=== PATIENT | female | born 1950 | race Caucasian/White ===

== ENCOUNTER 2022-12-28 18:37 | Inpatient (IN) | payer MEDICARE, SELFPAY ==
--- NOTE | ~2022-12-28 | US_ITS ---
EXAMINATION: US ABDOMEN COMPLETE CLINICAL INFORMATION: Upper abdominal pain, epigastric. Rule out pancreatic or biliary source. COMPARISON: None available. TECHNIQUE: Real-time imaging of the abdominal viscera. Technically limited study secondary to body habitus. FINDINGS: PANCREAS: Normal ABDOMINAL AORTA: The proximal, mid, and distal segments are normal in caliber. INFERIOR VENA CAVA: Visualized portions are normal. LIVER: The liver is normal in size. The liver contour is normal. Liver echotexture is normal. No focal hepatic lesion. There is no intrahepatic biliary duct dilatation seen. GALLBLADDER: Surgically absent. COMMON BILE DUCT: Normal in caliber measuring 0.5 cm in diameter. RIGHT KIDNEY: Mild hydronephrosis. No renal calculi or focal parenchymal lesions. The kidney measures 9.7 cm in maximum dimension. LEFT KIDNEY: Not well visualized. Mild hydronephrosis. The kidney measures 10.1 cm in maximum dimension. SPLEEN: Normal. The spleen measures 9.1 cm in maximum dimension. FREE FLUID: None. US/US abdomen complete IMPRESSION: Mild bilateral hydronephrosis. Left kidney not well visualized.
[2022-12-28 18:59] VITALS: BP 129/85; PULSE 110; RESP 16; TEMP 36.4; O2SAT 95
[2022-12-28 19:05] VITALS: BMI 30.2
--- NOTE | 2022-12-28 20:57 | PC.ADMIT ---
Addendum entered by Luke Morris RN 12/28/22 22:08: [facility] Original Note: Pt is a hospital to hospital transfer from [facility]. Pt arrived on unit with chad on 12/28/22 at 1845. She signed a CV and consents. She is 72yo and was calm and cooperative. She denies SI, HI, AH, VH. Pt ambulates independently but stated she doesn't like to walk far. Pt also reported she needs help with ADLs but seems to have adequate ROM, gross and fine motor skills. Pt says she has been depressed since her in 2018. Pt's affect was subdued. She made good eye contact. She does not remember the name of her PCP. She reported poor sleep. Pt answered admission questions and fell asleep. Pt has HTN, Herpes/Shingles on right buttock, and was started on Zyprexa 5mg for depression, at [facility]. Pt's admission date at [facility] was 12/02/22. She was treated for c-diff, hypocalcemia and hypocalcemia. Her son was notified of her admission
[2022-12-29 06:00] VITALS: BP 116/68; PULSE 93; RESP 16; TEMP 36.7; O2SAT 95
[2022-12-29 08:29] LABS: Alanine Aminotransferase 20 U/L (0-31); Albumin Level 3.2 g/dL (3.5-5.0); Alkaline Phosphatase 72 U/L (39-117); Anion Gap 11 (12-20); Aspartate Amino Transferase 19 U/L (5-31); Bilirubin Total 0.6 mg/dL (0.0-1.0); Blood Urea Nitrogen 18 mg/dL (9-16); Calcium 8.9 mg/dL (8.4-10.2); Carbon Dioxide 24 mmol/L (22-29); Chloride 108 mmol/L (96-108); Cholesterol 220 mg/dL (<200); Creatinine Clr Calc Pharmacy 58.2; Estimated Glomerular Filt Rate > 60; Glucose Fasting 97 mg/dL (60-99); HDL Cholesterol 35 mg/dL (>40); LDL Cholesterol Calculated 159 mg/dL (<100); Potassium 4.2 mmol/L (3.3-5.1); Sodium 139 mmol/L (135-145); Total Protein 5.6 g/dL (6.5-8.0); Triglycerides 130 mg/dL (<150)
--- NOTE | 2022-12-29 08:38 | HO.PSYADMNOT ---
HPI Date of Service: 12/29/22 Chief Complaint: Major Depressive D/O Recurrent Severe W/O Psyh Sources of Information: patient interviewed, chart reviewed and crisis/core team assessment reviewed HPI Subjective Notes: Zimmerman Warning and Conditional Voluntary Narrative: The patient is a 72-year-old female, , mother of 2 adult children, living alone with good social support referred from [facility] after she was found in the road to [facility], very confused with altered mental status. The police was called and she was rushed to the emergency room since she has altered mental status. Over there, she was diagnosed with a UTI, she was that he rotated and she has Clostridium difficile a that was treated with antibiotics. She was medically cleared and assessed by Psychiatry since the patient had been delusional. According to the crisis assessment, the patient had altered mental status, confusion and visual hallucinations. When she got more stable she complained of passive suicidal ideation, transferred to this facility for psychiatric stabilization. On interview the patient is a very poor historian, she stated that she is very tired and she wants to rest and she was unable to provide any details of how come she in the in the hospital or the emergency room. She gave us permission to contact her children who known more about it. According to the crisis assessment her son reported that she had been more depressed since 2018 that her . Since then she has been treated as an outpatient and she had been prescribed with Zyprexa in the past. The patient is a very poor historian we could not get any collateral information will try to gather more collateral information. The patient is able to contract for safety and she signed a conditional voluntary. Even though that she is slightly confused and disoriented, she wants treatment and she wants to get better. She feels safe in the facility. Past Psychiatric History: Unknown but apparently she has follows outpatient services the nurse practitioner Medical Evaluation Reviewed: Hospitalist Carmella Pending [facility] Narrative: UTI resolved, Family History: Denies Social History: The patient is a she reported that she has good social support provided by her children. She has grandchildren and she is a retired AIR CONDITIONING SUPERVISOR. She lives alone in her own place Substance History: Denies Trauma History: Unknown Diagnostics Vital Signs (24Hr): Vital Signs - 24 hr 12/28/22 18:59 12/29/22 06:00 Temperature 97.6 F 98.1 F Pulse Rate 110 H 93 Respiratory Rate 16 16 Blood Pressure 129/85 116/68 Pulse Oximetry 95 95 Oxygen Delivery Method Room Air Room Air BMI result Body Mass Index 30.2 Labs 12/29/22 07:52 Labs: Laboratory Results - last 48 hr 12/29/22 07:52 Sodium 139 Potassium 4.2 Chloride 108 Carbon Dioxide 24 Anion Gap 11 L BUN 18 H Creatinine 0.74 Estim Creat Clear Calc 58.2 Estimated GFR > 60 Fasting Glucose 97 Calcium 8.9 Total Bilirubin 0.6 AST 19 ALT 20 Alkaline Phosphatase 72 Total Protein 5.6 L Albumin 3.2 L Triglycerides 130 Cholesterol 220 H LDL Cholesterol, Calc 159 H HDL Cholesterol 35 L Meds/Allergies Meds Home Medications Medication Instructions Recorded Confirmed Type lorazepam 0.5 mg tablet 0.5 mg PO TID PRN Anxiety 12/28/22 12/28/22 History mirtazapine 7.5 mg tablet 7.5 mg PO BEDTIME 12/28/22 12/28/22 History olanzapine 5 mg disintegrating 5 mg PO BEDTIME 12/28/22 12/28/22 History tablet Allergies Allergies Allergy/AdvReac Type Severity Reaction Status Date / Time Unable to Assess Allergy Verified 12/28/22 18:48 Mental Status Exam Mental Status Exam Patient Appearance: Appropriate Patient Orientation: Person Level of Consciousness: Awake and Disoriented Patient Behavior: Guarded and Passive Mood Description: Calm Affect Description: Blunted Patient Cognition Impaired: Yes Ability to Follow Directions: Good Speech Pattern: Clear Hallucinations: None Delusions: Paranoid Ideation Thought Process: Illogical and Distracted Thought Content: positive for [place], positive for Poverty of Content and positive for Thought Blocking Judgement: Fair Assessment & Plan Assessment & Plan (1) Delirium: Status: Acute Code(s): R41.0 - Disorientation, unspecified (2) Mood disorder: Status: Acute Code(s): F39 - Unspecified mood [affective] disorder Plan The patient is an elderly female who was brought to the emergency room after she was found in the road disorganized with altered mental status due to UTI and clustering diffuse silly infection. She was medically treated and transferring to this facility since she reported exacerbation of depression with passive suicidal ideation. On the intake interview the patient was very confused, very tired unable to provide any details but she wants treatment. Plan 1. Gather collateral information, we will try to contact her son is and get more information about her previous treatment. 2. We will continue with Zyprexa 5 mg p.o. q.h.s. but started at [facility]. Apparently she had been prescribing this medication before. 3. We will continue medical follow-up. 4. Reassessment with results Patient educated on: diagnosis Informed Consent: further education needed Reason for continued inpatient stay Substantial Risk for: harm to self, inability to function, rapid decompensation and med/psych decompensation Statement Statement: I have reviewed the history and physical and performed a pertinent examination on my patient. No changes have occurred unless specified. If the History and Physical was not performed prior to admission, the Hospitalist's service will be consulted for completing the admission physical. Time Spent With Patient Time: Total time managing care of this patient today __45__ minutes.
[2022-12-29] MEDS: Magnesium Hydrox/Alum Hydrox 30 ML ORAL.SUSP PO (08:52)
--- NOTE | 2022-12-29 16:27 | HO.PM.IMCN ---
History of Present Illness Data of Consult Service Date: 12/29/22 Primary Care Provider: Unknown Physician HPI Reason for consult: Admission H&P Pt is a 72-year-old female with a PMH significant for?GERD and thymoma who is admitted to [facility] for increasing depression and passive wishes. Patient was originally admitted on 12/02/2022 to [facility] after being found lying on the side of the road and reported to the police that she was [place] [address] Patient was altered at the time and could provide no reason for why she was walking to the highway. Patient was initially admitted to the medical service for treatment of AMS, hypocalcemia, hypokalemia. Medical consult for admission H&P. ?Patient complains of ?GERD?: Burning, gnawing epigastric pain. States she is unable to eat secondary to the pain. Patient is alert and oriented x4, but says she has been having ?memory problems? and is unable to say what GERD medication she was on, when she last took her medication, or how long her GERD symptoms have been occurring. Patient has no other acute or chronic medical concerns at this time. Denies chest pain/pressure, palpitations. No shortness of breath. Denies fever, chills, nausea, vomiting. Patient also states her only medical conditions and GERD and a remote hx of thymoma. BMP reviewed, grossly unremarkable. Review of Systems Review of Systems: Epigastric pain Patient has no other acute medical concerns at this time [facility] Social History Household Members: None Household Members Other:: pt lives by self Housing: House Do you presently have visiting nurse or other home services: Yes Patient Tobacco Use Status: Never used Tobacco e-Cigarette/Vaping Use: Never Used Second Hand Smoke Exposure: No service: No Sexual orientation: Straight/Heterosexual Meds Allergies Allergy/AdvReac Type Severity Reaction Status Date / Time Unable to Assess Allergy Verified 12/28/22 18:48 Active Medications: Current Medications Acetaminophen (Acetaminophen 325 Mg Tablet) 650 mg PO Q6H PRN PRN Reason: Headache/Pain Mild Scale (1-3) Al Hydroxide/Mg Hydroxide (Magnesium Hydrox/Alum Hydrox 30 Ml Oral.Susp) 30 ml PO Q6H PRN PRN Reason: Heartburn/Nausea Last Admin: 12/29/22 08:52 Dose: 30 ml Hydroxyzine HCl (Hydroxyzine Hcl 25 Mg Tablet) 25 mg PO Q6H PRN PRN Reason: Anxiety Magnesium Hydroxide (Milk Of Magnesia 30 Ml Oral.Susp) 30 ml PO DAILY PRN PRN Reason: Constipation Mirtazapine (Mirtazapine 7.5 Mg Tablet) 7.5 mg PO BEDTIME ANGIE Olanzapine (Olanzapine 5 Mg Tablet) 5 mg PO BEDTIME ANGIE Trazodone HCl (Trazodone Hcl 50 Mg Tablet) 50 mg PO BEDTIME MRX1 PRN PRN Reason: Insomnia Home Medications Medication Instructions Recorded Confirmed Last Taken Type lorazepam 0.5 mg tablet 0.5 mg PO TID PRN Anxiety 12/28/22 12/28/22 12/21/22 20:20 History mirtazapine 7.5 mg tablet 7.5 mg PO BEDTIME 12/28/22 12/28/22 12/22/22 21:00 History olanzapine 5 mg disintegrating 5 mg PO BEDTIME 12/28/22 12/28/22 12/22/22 21:00 History tablet Physical Exam Vital Signs and Narrative: Vital Signs: Last Vital Signs Temp 98.1 F 12/29/22 06:00 Pulse 93 12/29/22 06:00 Resp 16 12/29/22 06:00 BP 116/68 12/29/22 06:00 Pulse Ox 95 12/29/22 06:00 O2 Del Method Room Air 12/29/22 06:00 BMI result Body Mass Index 30.2 General: AOx3, no acute distress Resp: CTA bilaterally CVS: S1, S2, RRR GI: +BS, NT, no distention Skin: No rash Neuro: Cranial nerves II-XII grossly intact bilaterally. Motor grossly intact bilaterally Extremities: No edema Psych: Pleasant, cooperative Results Labs 12/29/22 07:52 Labs: Laboratory Results - last 24 hr 12/29/22 07:52 Anion Gap 11 L Estim Creat Clear Calc 58.2 Estimated GFR > 60 Fasting Glucose 97 Calcium 8.9 Total Bilirubin 0.6 AST 19 ALT 20 Alkaline Phosphatase 72 Total Protein 5.6 L Albumin 3.2 L Triglycerides 130 Cholesterol 220 H LDL Cholesterol, Calc 159 H HDL Cholesterol 35 L Assessment and Plan (1) Medical clearance for psychiatric admission: Status: Acute Plan Pt is a 72-year-old female with a PMH significant for?GERD and thymoma who is admitted to [facility] for increasing depression and passive wishes. Patient was originally admitted on 12/02/2022 to [facility] after being found lying on the side of the road and reported to the police that she was [place] [address] Patient was altered at the time and could provide no reason for why she was walking to the highway. Patient was initially admitted to the medical service for treatment of AMS, hypocalcemia, hypokalemia. Medical consult for admission H&P. Mood disorder Plan as per Psychiatry GERD Patient complaining of burning, gnawing epigastric pain that is preventing her from eating Patient unable to remember what GERD medication she was on, uncertain how long she has been off her medications Medication review indicates patient was on famotidine 40 mg daily, last filled 05/16/2022 Continue Maalox p.r.n. Will restart famotidine at 20mg bid Encourage patient to eat Patient has no other known chronic medical history and no acute medical complaints at this time. BMP grossly unremarkable with no electrolyte. Will sign off at this time. Please re-consult if there are any acute problems or concerns. Time Spent With Patient Time: Total time managing care of this patient today ____ minutes.
[2022-12-29 18:00] VITALS: BP 135/60; PULSE 73; RESP 16; TEMP 35.9; O2SAT 95
[2022-12-29] MEDS: OLANZapine 5 MG TABLET PO (20:10)
[2022-12-29] MEDS: Mirtazapine 7.5 MG TABLET PO (20:10)
[2022-12-29] MEDS: Famotidine 20 MG TABLET PO (20:10)
[2022-12-30 07:00] VITALS: BMI 29.3
[2022-12-30 08:00] VITALS: BP 137/87; PULSE 73; RESP 18; TEMP 35.9; O2SAT 95
--- NOTE | 2022-12-30 13:43 | HO.PSYCHPN ---
Subjective Subjective Date of Service: 12/30/22 Reason For Visit: Major Depressive D/O Recurrent Severe W/O Psyh Subjective Notes: Conditional Voluntary Interim History: The nursing staff reported the patient had been on her bed depressed, she did not have breakfast for lunch yesterday. The occupational therapist did an Ravi test and she score 4.0. They could not do a [place] due to her lack of willing to get out of her bed. The director social welfare reported that she is going to get more collateral information. On interview the patient remains that she is feeling depressed and tired. We are going to increase her Remeron up to 50 mg p.o. q.h.s. to target depression Mental Status Exam Mental Status Exam Patient Appearance: Appropriate Patient Orientation: Person Level of Consciousness: Awake and Appropriate Patient Behavior: Guarded and Passive Mood Description: Withdrawn Affect Description: Constricted Patient Cognition Impaired: Yes Ability to Follow Directions: Good Speech Pattern: Clear Hallucinations: None Delusions: Not Present Thought Process: Distracted and Slowed Thinking Thought Content: positive for [place] and positive for Circumstantial Judgement: Fair Diagnostics Vital Signs (24Hr): Vital Signs - 24 hr 12/29/22 18:00 12/30/22 08:00 Temperature 96.7 F L 96.6 F L Pulse Rate 73 73 Respiratory Rate 16 18 Blood Pressure 135/60 137/87 Pulse Oximetry 95 95 Oxygen Delivery Method Room Air Room Air BMI result Body Mass Index 29.3 Labs 12/29/22 07:52 Labs: Laboratory Results - last 48 hr 12/29/22 07:52 Sodium 139 Potassium 4.2 Chloride 108 Carbon Dioxide 24 Anion Gap 11 L BUN 18 H Creatinine 0.74 Estim Creat Clear Calc 58.2 Estimated GFR > 60 Fasting Glucose 97 Calcium 8.9 Total Bilirubin 0.6 AST 19 ALT 20 Alkaline Phosphatase 72 Total Protein 5.6 L Albumin 3.2 L Triglycerides 130 Cholesterol 220 H LDL Cholesterol, Calc 159 H HDL Cholesterol 35 L Medications Medications Current Medications Acetaminophen (Acetaminophen 325 Mg Tablet) 650 mg PO Q6H PRN PRN Reason: Headache/Pain Mild Scale (1-3) Al Hydroxide/Mg Hydroxide (Magnesium Hydrox/Alum Hydrox 30 Ml Oral.Susp) 30 ml PO Q6H PRN PRN Reason: Heartburn/Nausea Last Admin: 12/29/22 08:52 Dose: 30 ml Famotidine (Famotidine 20 Mg Tablet) 20 mg PO BID ANGIE Last Admin: 12/30/22 08:39 Dose: 20 mg Hydroxyzine HCl (Hydroxyzine Hcl 25 Mg Tablet) 25 mg PO Q6H PRN PRN Reason: Anxiety Magnesium Hydroxide (Milk Of Magnesia 30 Ml Oral.Susp) 30 ml PO DAILY PRN PRN Reason: Constipation Mirtazapine (Mirtazapine 7.5 Mg Tablet) 7.5 mg PO BEDTIME [facility] Last Admin: 12/29/22 20:10 Dose: 7.5 mg Olanzapine (Olanzapine 5 Mg Tablet) 5 mg PO BEDTIME [facility] Last Admin: 12/29/22 20:10 Dose: 5 mg Trazodone HCl (Trazodone Hcl 50 Mg Tablet) 50 mg PO BEDTIME MRX1 PRN PRN Reason: Insomnia Allergies Allergies Allergy/AdvReac Type Severity Reaction Status Date / Time Unable to Assess Allergy Verified 12/28/22 18:48 Assessment & Plan Assessment & Plan (1) Medical clearance for psychiatric admission: Status: Acute Code(s): Z00.8 - Encounter for other general examination (2) Delirium: Status: Acute Code(s): R41.0 - Disorientation, unspecified (3) Mood disorder: Status: Acute Code(s): F39 - Unspecified mood [affective] disorder Plan Pt is a 72-year-old female with a PMH significant for?GERD and thymoma who is admitted to [facility] for increasing depression and passive wishes. Patient was originally admitted on 12/02/[address] [facility] after being found lying on the side of the road and reported to the police that she was [place] [address] Patient was altered at the time and could provide no reason for why she was walking to the highway. Patient was initially admitted to the medical service for treatment of AMS, hypocalcemia, hypokalemia. Medical consult for admission H&P. Mood disorder Plan as per Psychiatry GERD Patient complaining of burning, gnawing epigastric pain that is preventing her from eating Patient unable to remember what GERD medication she was on, uncertain how long she has been off her medications Medication review indicates patient was on famotidine 40 mg daily, last filled 05/16/2022 Continue Maalox p.r.n. Will restart famotidine at 20mg bid Encourage patient to eat Patient has no other known chronic medical history and no acute medical complaints at this time. BMP grossly unremarkable with no electrolyte. Will sign off at this time. Please re-consult if there are any acute problems or concerns. Plan 1. Gather collateral information. 2. Continue Zyprexa at the same dose. 3. Increased Remeron up to 50 mg p.o. q.h.s. on December 30 to target depression. Reason for continued inpatient stay Substantial Risk for: inability to function, rapid decompensation and med/psych decompensation Time Spent With Patient Time: Total time managing care of this patient today _20___ minutes.
[2022-12-30 19:30] VITALS: BP 143/85; PULSE 85; RESP 18; TEMP 36.1; O2SAT 94
[2022-12-30] MEDS: Mirtazapine 7.5 MG TABLET PO (20:58)
[2022-12-30] MEDS: OLANZapine 5 MG TABLET PO (20:59)
[2022-12-31 07:45] VITALS: BP 103/58; PULSE 89; RESP 12; TEMP 36.2; O2SAT 93
--- NOTE | 2022-12-31 14:00 | PM.PSYCN ---
History of Present Illness Chief Complaint: Major Depressive D/O Recurrent Severe W/O Psyh HPI Past Psychiatric History: Unknown but apparently she has follows outpatient services the nurse practitioner [facility] Family History: Denies Social History: The patient is a she reported that she has good social support provided by her children. She has grandchildren and she is a retired SUBSTANCE ABUSE RN. She lives alone in her own place Trauma History: Unknown Diagnostics Vital Signs (24Hr): Vital Signs - 24 hr 12/30/22 19:30 12/31/22 07:45 Temperature 96.9 F 97.1 F Pulse Rate 85 89 Respiratory Rate 18 12 Blood Pressure 143/85 H 103/58 L Pulse Oximetry 94 93 Oxygen Delivery Method Room Air BMI result Body Mass Index 29.3 Labs 12/29/22 07:52 Medications Medications Current Medications Acetaminophen (Acetaminophen 325 Mg Tablet) 650 mg PO Q6H PRN PRN Reason: Headache/Pain Mild Scale (1-3) Al Hydroxide/Mg Hydroxide (Magnesium Hydrox/Alum Hydrox 30 Ml Oral.Susp) 30 ml PO Q6H PRN PRN Reason: Heartburn/Nausea Last Admin: 12/29/22 08:52 Dose: 30 ml Famotidine (Famotidine 20 Mg Tablet) 20 mg PO BID ANGIE Last Admin: 12/31/22 08:18 Dose: 20 mg Hydroxyzine HCl (Hydroxyzine Hcl 25 Mg Tablet) 25 mg PO Q6H PRN PRN Reason: Anxiety Magnesium Hydroxide (Milk Of Magnesia 30 Ml Oral.Susp) 30 ml PO DAILY PRN PRN Reason: Constipation Mirtazapine (Mirtazapine 7.5 Mg Tablet) 7.5 mg PO BEDTIME ANGIE Last Admin: 12/30/22 20:58 Dose: 7.5 mg Olanzapine (Olanzapine 5 Mg Tablet) 5 mg PO BEDTIME ANGIE Last Admin: 12/30/22 20:59 Dose: 5 mg Trazodone HCl (Trazodone Hcl 50 Mg Tablet) 50 mg PO BEDTIME MRX1 PRN PRN Reason: Insomnia Last Admin: 12/30/22 20:58 Dose: 50 mg Allergies Allergies Allergy/AdvReac Type Severity Reaction Status Date / Time Unable to Assess Allergy Verified 12/28/22 18:48 Assessment & Plan Total time managing care of this patient today ____ minutes.
--- NOTE | 2022-12-31 15:24 | PM.IMHP ---
[facility] Social History Household Members: None Household Members Other:: pt lives by self Housing: House Do you presently have visiting nurse or other home services: Yes Patient Tobacco Use Status: Never used Tobacco Smoked in Last 30 Days: No e-Cigarette/Vaping Use: Never Used Patient Interested in Nicotine Replacement: No Patient Given Instructions on How to Stop Smoking: No Second Hand Smoke Exposure: No Use of substances other than those prescribed or required for medical reasons: No Currently Displaying Signs/Symptoms of Drug Intoxication Withdrawal: No Any prior treatment program specific to substance use: No Have you been hit, kicked, punched, or otherwise hurt by someone within the past year? If so, by whom?: No Do you feel safe in your current relationship?: No Is there a partner from a previous relationship who is making you feel unsafe now?: No Advance Directives: No Advance Directives Information Provided: No Do you have thoughts of harming others: None Do you have a plan to hurt others: No Plan Recently lost weight without trying: No Eating poorly because of decreased appetite: No Patient : No : No Poor oral hygiene: No service: No Sexual orientation: Straight/Heterosexual Meds Allergies Allergy/AdvReac Type Severity Reaction Status Date / Time Unable to Assess Allergy Verified 12/28/22 18:48 Active Medications: Current Medications Acetaminophen (Acetaminophen 325 Mg Tablet) 650 mg PO Q6H PRN PRN Reason: Headache/Pain Mild Scale (1-3) Al Hydroxide/Mg Hydroxide (Magnesium Hydrox/Alum Hydrox 30 Ml Oral.Susp) 30 ml PO Q6H PRN PRN Reason: Heartburn/Nausea Last Admin: 12/29/22 08:52 Dose: 30 ml Famotidine (Famotidine 20 Mg Tablet) 20 mg PO BID ANGIE Last Admin: 12/31/22 08:18 Dose: 20 mg Hydroxyzine HCl (Hydroxyzine Hcl 25 Mg Tablet) 25 mg PO Q6H PRN PRN Reason: Anxiety Magnesium Hydroxide (Milk Of Magnesia 30 Ml Oral.Susp) 30 ml PO DAILY PRN PRN Reason: Constipation Mirtazapine (Mirtazapine 7.5 Mg Tablet) 7.5 mg PO BEDTIME ANGIE Last Admin: 12/30/22 20:58 Dose: 7.5 mg Olanzapine (Olanzapine 5 Mg Tablet) 5 mg PO BEDTIME ANGIE Last Admin: 12/30/22 20:59 Dose: 5 mg Trazodone HCl (Trazodone Hcl 50 Mg Tablet) 50 mg PO BEDTIME MRX1 PRN PRN Reason: Insomnia Last Admin: 12/30/22 20:58 Dose: 50 mg Home Medications Medication Instructions Recorded Confirmed Last Taken Type lorazepam 0.5 mg tablet 0.5 mg PO TID PRN Anxiety 12/28/22 12/28/22 12/21/22 20:20 History mirtazapine 7.5 mg tablet 7.5 mg PO BEDTIME 12/28/22 12/28/22 12/22/22 21:00 History olanzapine 5 mg disintegrating 5 mg PO BEDTIME 12/28/22 12/28/22 12/22/22 21:00 History tablet Physical Exam Vital Signs and Narrative: Vital Signs: Last Vital Signs Temp 97.1 F 12/31/22 07:45 Pulse 89 12/31/22 07:45 Resp 12 12/31/22 07:45 BP 103/58 L 12/31/22 07:45 Pulse Ox 93 12/31/22 07:45 O2 Del Method Room Air 12/30/22 19:30 BMI result Body Mass Index 29.3 Results Labs 12/31/22 14:39 12/31/22 14:39 Labs: Laboratory Results - last 24 hr 12/31/22 14:39 MCV 96.6 MCH 30.9 MCHC 32.0 RDW 17.5 H Plt Count 276 MPV 10.6 Immature Gran % (Auto) 0.5 H Neut % (Auto) 66.4 Lymph % (Auto) 20.6 [place] % (Auto) 9.3 Eos % (Auto) 2.2 Baso % (Auto) 1.0 Lymph # (Auto) 1.3 [place] # (Auto) 0.6 Eos # (Auto) 0.1 Baso # (Auto) 0.1 Abs Immat Gran (auto) 0.03 Absolute Neuts (auto) 4.2 Absolute Nucleated RBC 0.000 Nucleated RBC % (auto) 0.0 Assessment and Plan Time Spent With Patient Time: Total time managing care of this patient today ____ minutes.
[2022-12-31 15:42] LABS: Alanine Aminotransferase 17 U/L (0-31); Albumin Level 3.4 g/dL (3.5-5.0); Alkaline Phosphatase 74 U/L (39-117); Anion Gap 17 (12-20); Aspartate Amino Transferase 19 U/L (5-31); Bilirubin Total 0.6 mg/dL (0.0-1.0); Blood Urea Nitrogen 24 mg/dL (9-16); Calcium 9.2 mg/dL (8.4-10.2); Carbon Dioxide 19 mmol/L (22-29); Chloride 107 mmol/L (96-108); Creatinine Clr Calc Pharmacy 49.3; Estimated Glomerular Filt Rate > 60; Glucose Random 83 mg/dL (60-115); Potassium 4.4 mmol/L (3.3-5.1); Sodium 139 mmol/L (135-145); Total Protein 6.1 g/dL (6.5-8.0)
[2022-12-31 18:00] VITALS: BP 107/52; PULSE 88; RESP 18; TEMP 36.7; O2SAT 93
--- NOTE | 2022-12-31 18:24 | PM.EVENT ---
Event Note Date of Service: 12/31/22 Event Note: Pt admitted to [facility] with consult placed to hospitalist service for evaluation of abdominal pain, decreased po intake, and loose stool. The patient was recently admitted to [facility] found to have CDiff with pnacolitis noted on ct abd/pelvis. Initially has leukocytosis 19.2. Completed course of PO vancomycin wtih wbc trending down to 5.4. Unfortunately patient states she never fully felt better however symptoms are improving. Diarrhea had fully resolved but did have single episode diarrhea with fecal incontinence last night. No further diarrhea. Has soft stool today. Continues with 5/10 epigastric pain and reports abdominal fullness as well as heartburn. No fevers, chills, nausea, vomiting, melena, hematochezia. No sob, chest pain. She has had decreased appetite. Has been drinking water and was able to tolerate a grilled cheese sandwich this afternoon. On exam, abdomen is soft nondistended. There is no tenderness to palpation. No rebound tenderness or guarding. Vitals are stable. At this time would recommend adding omeprazole 20 mg as well as simethicone p.r.n. for gas and bloating/epigastric discomfort. At this time, would not recommend retesting for CDiff and further imaging not indicated at this time. Reviewed labs. No leukocytosis. Renal function and electrolytes normal. Continue monitoring for any worsening symptoms but patient appears to be slowly improving, now tolerating PO. Thank you for allowing me to participate in this consult. Signing off at this time. Please do not hesitate to call for further questions. Time Spent With Patient Time: Total time managing care of this patient today ____ minutes.
--- NOTE | 2022-12-31 21:01 | HO.PSYCHPN ---
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 She denies nausea, no vomiting, afebrile. She does report feeling weak- increase in BUN does suggest some dehydration- encouraged to have fluids. Otherwise, pt reports not feeling well. No plan or intent to harm herself. No s/s of psychosis or delusions. Per nursing, pt mostly in bed. Medication Compliance: Yes Side effects from medications: No Attending Groups: No Review of Systems Review of Systems Epigastric pain Patient has no other acute medical concerns at this time Yes Unobtainable due to mental status Mental Status Exam Mental Status Exam Patient Appearance: Appropriate Patient Orientation: Person Level of Consciousness: Awake and Appropriate Patient Behavior: Guarded and Passive Mood Description: Withdrawn Affect Description: Constricted Patient Cognition Impaired: Yes Ability to Follow Directions: Good Speech Pattern: Clear Diagnostics Vital Signs (24Hr): Vital Signs - 24 hr 12/31/22 07:45 Temperature 97.1 F Pulse Rate 89 Respiratory Rate 12 Blood Pressure 103/58 L Pulse Oximetry 93 BMI result Body Mass Index 29.3 Labs 12/31/22 14:39 12/31/22 14:39 Labs: Laboratory Results - last 48 hr 12/31/22 14:39 WBC 6.3 RBC 5.01 Hgb 15.5 Hct 48.4 H MCV 96.6 MCH 30.9 MCHC 32.0 RDW 17.5 H Plt Count 276 MPV 10.6 Immature Gran % (Auto) 0.5 H Neut % (Auto) 66.4 Lymph % (Auto) 20.6 [place] % (Auto) 9.3 Eos % (Auto) 2.2 Baso % (Auto) 1.0 Lymph # (Auto) 1.3 [place] # (Auto) 0.6 Eos # (Auto) 0.1 Baso # (Auto) 0.1 Abs Immat Gran (auto) 0.03 Absolute Neuts (auto) 4.2 Absolute Nucleated RBC 0.000 Nucleated RBC % (auto) 0.0 Sodium 139 Potassium 4.4 Chloride 107 Carbon Dioxide 19 L Anion Gap 17 BUN 24 H Creatinine 0.86 Estim Creat Clear Calc 49.3 Estimated GFR > 60 Random Glucose 83 Calcium 9.2 Total Bilirubin 0.6 AST 19 ALT 17 Alkaline Phosphatase 74 Total Protein 6.1 L Albumin 3.4 L Medications Medications Current Medications Acetaminophen (Acetaminophen 325 Mg Tablet) 650 mg PO Q6H PRN PRN Reason: Headache/Pain Mild Scale (1-3) Al Hydroxide/Mg Hydroxide (Magnesium Hydrox/Alum Hydrox 30 Ml Oral.Susp) 30 ml PO Q6H PRN PRN Reason: Heartburn/Nausea Last Admin: 12/29/22 08:52 Dose: 30 ml Famotidine (Famotidine 20 Mg Tablet) 20 mg PO BID [facility] Last Admin: 12/31/22 08:18 Dose: 20 mg Hydroxyzine HCl (Hydroxyzine Hcl 25 Mg Tablet) 25 mg PO Q6H PRN PRN Reason: Anxiety Magnesium Hydroxide (Milk Of Magnesia 30 Ml Oral.Susp) 30 ml PO DAILY PRN PRN Reason: Constipation Mirtazapine (Mirtazapine 7.5 Mg Tablet) 7.5 mg PO BEDTIME [facility] Last Admin: 12/30/22 20:58 Dose: 7.5 mg Olanzapine (Olanzapine 5 Mg Tablet) 5 mg PO BEDTIME [facility] Last Admin: 12/30/22 20:59 Dose: 5 mg Omeprazole (Omeprazole 20 Mg Capsule.Dr) 20 mg PO DAILY@0630 [facility] Simethicone (Simethicone 80 Mg Tab.Chew) 80 mg PO QIDWMHS PRN PRN Reason: epigastric discomfort/bloating Trazodone HCl (Trazodone Hcl 50 Mg Tablet) 50 mg PO BEDTIME MRX1 PRN PRN Reason: Insomnia Last Admin: 12/30/22 20:58 Dose: 50 mg Allergies Allergies Allergy/AdvReac Type Severity Reaction Status Date / Time Unable to Assess Allergy Verified 12/28/22 18:48 Assessment & Plan Assessment & Plan (1) Mood disorder: Status: Acute Code(s): F39 - Unspecified mood [affective] disorder Plan Pt is a 72-year-old female with a PMH significant for?GERD and thymoma who is admitted to [facility] for increasing depression and passive wishes. Patient was originally admitted on 12/02/2022 to [facility] after being found lying on the side of the road and reported to the police that she [place] [address] Patient was altered at the time and could provide no reason for why she was walking to the highway. Patient was initially admitted to the medical service for treatment of AMS, hypocalcemia, hypokalemia. Medical consult for admission H&P. Mood disorder Plan as per Psychiatry GERD Patient complaining of burning, gnawing epigastric pain that is preventing her from eating Patient unable to remember what GERD medication she was on, uncertain how long she has been off her medications Medication review indicates patient was on famotidine 40 mg daily, last filled 05/16/2022 Continue Maalox p.r.n. Will restart famotidine at 20mg bid Encourage patient to eat Patient has no other known chronic medical history and no acute medical complaints at this time. BMP grossly unremarkable with no electrolyte. Will sign off at this time. Please re-consult if there are any acute problems or concerns. Plan 12/31 continue current tx. hospitalist consult ordered due to ongoing stomach ache, poor oral intake, less loose stools, afebrile. some dehydration, encouraged to drink fluids. Reason for continued inpatient stay Substantial Risk for: inability to function Time Spent With Patient Time: Total time managing care of this patient today ____ minutes.
[2023-01-01 07:46] VITALS: BP 116/78; PULSE 92; RESP 18; TEMP 36.4; O2SAT 96
--- NOTE | 2023-01-01 12:23 | HO.PSYCHPN ---
Subjective Subjective Date of Service: 01/01/23 Reason For Visit: Major Depressive D/O Recurrent Severe W/O Psyh Interim History: Patient reports she has low appetite because she still has some abdominal pain. No distress. No N/V. Ate breakfast but not lunch. Poor sleep. Doesn't feel medications have helped with sleep. afebrile. She does report feeling weak. Encouraged to have fluids. No SI. No plan or intent to harm herself. No s/s of psychosis or delusions. Per nursing, pt mostly in bed. Per hospitalist no need for further imaging or treatment for CDiff. Simethicone and Omeprazole recommended. Review of Systems Review of Systems Epigastric pain Patient has no other acute medical concerns at this time Yes Unobtainable due to mental status Mental Status Exam Mental Status Exam Patient Appearance: Appropriate Patient Orientation: Person Level of Consciousness: Awake and Appropriate Patient Behavior: Guarded and Passive Mood Description: Withdrawn Affect Description: Constricted Patient Cognition Impaired: Yes Ability to Follow Directions: Good Speech Pattern: Clear Diagnostics Vital Signs (24Hr): Vital Signs - 24 hr 12/31/22 18:00 01/01/23 07:46 Temperature 98.1 F 97.5 F Pulse Rate 88 92 Respiratory Rate 18 18 Blood Pressure 107/52 L 116/78 Pulse Oximetry 93 96 Oxygen Delivery Method Room Air Room Air BMI result Body Mass Index 29.3 Labs 12/31/22 14:39 12/31/22 14:39 Labs: Laboratory Results - last 48 hr 12/31/22 14:39 WBC 6.3 RBC 5.01 Hgb 15.5 Hct 48.4 H MCV 96.6 MCH 30.9 MCHC 32.0 RDW 17.5 H Plt Count 276 MPV 10.6 Immature Gran % (Auto) 0.5 H Neut % (Auto) 66.4 Lymph % (Auto) 20.6 [place] % (Auto) 9.3 Eos % (Auto) 2.2 Baso % (Auto) 1.0 Lymph # (Auto) 1.3 [place] # (Auto) 0.6 Eos # (Auto) 0.1 Baso # (Auto) 0.1 Abs Immat Gran (auto) 0.03 Absolute Neuts (auto) 4.2 Absolute Nucleated RBC 0.000 Nucleated RBC % (auto) 0.0 Sodium 139 Potassium 4.4 Chloride 107 Carbon Dioxide 19 L Anion Gap 17 BUN 24 H Creatinine 0.86 Estim Creat Clear Calc 49.3 Estimated GFR > 60 Random Glucose 83 Calcium 9.2 Total Bilirubin 0.6 AST 19 ALT 17 Alkaline Phosphatase 74 Total Protein 6.1 L Albumin 3.4 L Medications Medications Current Medications Acetaminophen (Acetaminophen 325 Mg Tablet) 650 mg PO Q6H PRN PRN Reason: Headache/Pain Mild Scale (1-3) Al Hydroxide/Mg Hydroxide (Magnesium Hydrox/Alum Hydrox 30 Ml Oral.Susp) 30 ml PO Q6H PRN PRN Reason: Heartburn/Nausea Last Admin: 12/29/22 08:52 Dose: 30 ml Famotidine (Famotidine 20 Mg Tablet) 20 mg PO BID [facility] Last Admin: 01/01/23 08:01 Dose: 20 mg Hydroxyzine HCl (Hydroxyzine Hcl 25 Mg Tablet) 25 mg PO Q6H PRN PRN Reason: Anxiety Magnesium Hydroxide (Milk Of Magnesia 30 Ml Oral.Susp) 30 ml PO DAILY PRN PRN Reason: Constipation Mirtazapine (Mirtazapine 7.5 Mg Tablet) 7.5 mg PO BEDTIME [facility] Last Admin: 12/31/22 21:10 Dose: 7.5 mg Olanzapine (Olanzapine 5 Mg Tablet) 5 mg PO BEDTIME [facility] Last Admin: 12/31/22 21:10 Dose: 5 mg Omeprazole (Omeprazole 20 Mg Capsule.Dr) 20 mg PO DAILY@0630 [facility] Last Admin: 01/01/23 06:42 Dose: 20 mg Simethicone (Simethicone 80 Mg Tab.Chew) 80 mg PO QIDWMHS PRN PRN Reason: epigastric discomfort/bloating Last Admin: 01/01/23 08:01 Dose: 80 mg Trazodone HCl (Trazodone Hcl 50 Mg Tablet) 50 mg PO BEDTIME MRX1 PRN PRN Reason: Insomnia Last Admin: 12/31/22 21:12 Dose: 50 mg Allergies Allergies Allergy/AdvReac Type Severity Reaction Status Date / Time Unable to Assess Allergy Verified 12/28/22 18:48 Assessment & Plan Assessment & Plan (1) Mood disorder: Status: Acute Code(s): F39 - Unspecified mood [affective] disorder Plan Pt is a 72-year-old female with a PMH significant for?GERD and thymoma who is admitted to [facility] for increasing depression and passive wishes. Patient was originally admitted on 12/02/2022 to [facility] after being found lying on the side of the road and reported to the police that she was [place] [address] Patient was altered at the time and could provide no reason for why she was walking to the highway. Patient was initially admitted to the medical service for treatment of AMS, hypocalcemia, hypokalemia. Medical consult for admission H&P. Mood disorder Plan as per Psychiatry GERD Patient complaining of burning, gnawing epigastric pain that is preventing her from eating Patient unable to remember what GERD medication she was on, uncertain how long she has been off her medications Medication review indicates patient was on famotidine 40 mg daily, last filled 05/16/2022 Continue Maalox p.r.n. Will restart famotidine at 20mg bid Encourage patient to eat Patient has no other known chronic medical history and no acute medical complaints at this time. BMP grossly unremarkable with no electrolyte. Will sign off at this time. Please re-consult if there are any acute problems or concerns. Plan 12/31 continue current tx. hospitalist consult ordered due to ongoing stomach ache, poor oral intake, less loose stools, afebrile. some dehydration, encouraged to drink fluids. 01/01 Continue treatment plan. Reason for continued inpatient stay Substantial Risk for: inability to function and rapid decompensation Time Spent With Patient Time: Total time managing care of this patient today ____ minutes.
[2023-01-01 18:00] VITALS: BP 114/83; PULSE 93; RESP 16; TEMP 36.1; O2SAT 99
[2023-01-02 08:09] VITALS: BP 106/53; PULSE 83; RESP 16; TEMP 36.2; O2SAT 94
[2023-01-02 18:00] VITALS: RESP 16
--- NOTE | 2023-01-02 19:05 | HO.PSYCHPN ---
Subjective Subjective Date of Service: 01/02/23 Reason For Visit: Major Depressive D/O Recurrent Severe W/O Psyh Interim History: Patient seen and discussed. She remains very depressed, isolated. She has poor PO although says she ate a good breakfast but no tlunch. She says she is depressed because of financial issues. She says she is far from home in [place] [place]. She has not talked to her family. She is not in distress. No N/V. Poor sleep. Doesn't feel medications have helped with sleep. No SI. No plan or intent to harm herself. No s/s of psychosis or delusions. Per nursing, pt mostly in bed. Review of Systems Review of Systems Epigastric pain Patient has no other acute medical concerns at this time Yes Unobtainable due to mental status Mental Status Exam Mental Status Exam Patient Appearance: Appropriate Patient Orientation: Person Level of Consciousness: Awake and Appropriate Patient Behavior: Guarded and Passive Mood Description: Withdrawn Affect Description: Constricted Patient Cognition Impaired: Yes Ability to Follow Directions: Good Speech Pattern: Clear Diagnostics Vital Signs (24Hr): Vital Signs - 24 hr 01/02/23 08:09 Temperature 97.2 F Pulse Rate 83 Respiratory Rate 16 Blood Pressure 106/53 L Pulse Oximetry 94 Oxygen Delivery Method Room Air BMI result Body Mass Index 29.3 Labs 12/31/22 14:39 12/31/22 14:39 Medications Medications Current Medications Acetaminophen (Acetaminophen 325 Mg Tablet) 650 mg PO Q6H PRN PRN Reason: Headache/Pain Mild Scale (1-3) Al Hydroxide/Mg Hydroxide (Magnesium Hydrox/Alum Hydrox 30 Ml Oral.Susp) 30 ml PO Q6H PRN PRN Reason: Heartburn/Nausea Last Admin: 12/29/22 08:52 Dose: 30 ml Escitalopram Oxalate (Escitalopram Oxalate 5 Mg Tablet) 5 mg PO DAILY [facility] Famotidine (Famotidine 20 Mg Tablet) 20 mg PO BID [facility] Last Admin: 01/02/23 08:10 Dose: 20 mg Hydroxyzine HCl (Hydroxyzine Hcl 25 Mg Tablet) 25 mg PO Q6H PRN PRN Reason: Anxiety Magnesium Hydroxide (Milk Of Magnesia 30 Ml Oral.Susp) 30 ml PO DAILY PRN PRN Reason: Constipation Mirtazapine (Mirtazapine 7.5 Mg Tablet) 7.5 mg PO BEDTIME [facility] Last Admin: 01/01/23 20:17 Dose: 7.5 mg Olanzapine (Olanzapine 5 Mg Tablet) 5 mg PO BEDTIME [facility] Last Admin: 01/01/23 20:17 Dose: 5 mg Omeprazole (Omeprazole 20 Mg Capsule.Dr) 20 mg PO DAILY@0630 [facility] Last Admin: 01/02/23 06:28 Dose: 20 mg Simethicone (Simethicone 80 Mg Tab.Chew) 80 mg PO QIDWMHS PRN PRN Reason: epigastric discomfort/bloating Last Admin: 01/01/23 08:01 Dose: 80 mg Trazodone HCl (Trazodone Hcl 50 Mg Tablet) 50 mg PO BEDTIME MRX1 PRN PRN Reason: Insomnia Last Admin: 01/01/23 20:17 Dose: 50 mg Allergies Allergies Allergy/AdvReac Type Severity Reaction Status Date / Time Unable to Assess Allergy Verified 12/28/22 18:48 Assessment & Plan Assessment & Plan (1) Mood disorder: Status: Acute Code(s): F39 - Unspecified mood [affective] disorder Plan Pt is a 72-year-old female with a PMH significant for?GERD and thymoma who is admitted to [facility] for increasing depression and passive wishes. Patient was originally admitted on 12/02/2022 to [facility] after being found lying on the side of the road and reported to the police that she was [place] [address] Patient was altered at the time and could provide no reason for why she was walking to the highway. Patient was initially admitted to the medical service for treatment of AMS, hypocalcemia, hypokalemia. Medical consult for admission H&P. Mood disorder Plan as per Psychiatry GERD Patient complaining of burning, gnawing epigastric pain that is preventing her from eating Patient unable to remember what GERD medication she was on, uncertain how long she has been off her medications Medication review indicates patient was on famotidine 40 mg daily, last filled 05/16/2022 Continue Maalox p.r.n. Will restart famotidine at 20mg bid Encourage patient to eat Patient has no other known chronic medical history and no acute medical complaints at this time. BMP grossly unremarkable with no electrolyte. Will sign off at this time. Please re-consult if there are any acute problems or concerns. Plan 12/31 continue current tx. hospitalist consult ordered due to ongoing stomach ache, poor oral intake, less loose stools, afebrile. some dehydration, encouraged to drink fluids. 01/01 Continue treatment plan. 01/02: Will start Lexapro targeting depression. Continue other medications unchanged. Reason for continued inpatient stay Substantial Risk for: inability to function and rapid decompensation Time Spent With Patient Time: Total time managing care of this patient today ____ minutes.
[2023-01-03 08:16] VITALS: BP 114/59; PULSE 75; RESP 18; TEMP 36.3; O2SAT 95
--- NOTE | 2023-01-03 15:15 | HO.PSYCHPN ---
Subjective Subjective Date of Service: 01/03/23 Reason For Visit: Major Depressive D/O Recurrent Severe W/O Psyh Interim History: Patient was seen and discussed in rounds today. Records and plans were reviewed. She is mostly in bed, not eating, not voiding because of not drinking. Bladder scan showed no urine in her bladder. She has been taking medications. No changes were made Review of Systems Review of Systems Yes Unobtainable due to mental status Mental Status Exam Mental Status Exam Patient Appearance: Appropriate Patient Orientation: Person Level of Consciousness: Awake and Appropriate Patient Behavior: Guarded and Passive Mood Description: Withdrawn Affect Description: Constricted Patient Cognition Impaired: Yes Ability to Follow Directions: Good Speech Pattern: Clear Diagnostics Vital Signs (24Hr): Vital Signs - 24 hr 01/02/23 18:00 01/03/23 08:16 Temperature 97.3 F Pulse Rate 75 Respiratory Rate 16 18 Blood Pressure 114/59 L Pulse Oximetry 95 Oxygen Delivery Method Room Air BMI result Body Mass Index 29.3 Labs 12/31/22 14:39 12/31/22 14:39 Medications Medications Current Medications Acetaminophen (Acetaminophen 325 Mg Tablet) 650 mg PO Q6H PRN PRN Reason: Headache/Pain Mild Scale (1-3) Al Hydroxide/Mg Hydroxide (Magnesium Hydrox/Alum Hydrox 30 Ml Oral.Susp) 30 ml PO Q6H PRN PRN Reason: Heartburn/Nausea Last Admin: 12/29/22 08:52 Dose: 30 ml Escitalopram Oxalate (Escitalopram Oxalate 5 Mg Tablet) 5 mg PO DAILY [facility] Last Admin: 01/03/23 08:30 Dose: 5 mg Famotidine (Famotidine 20 Mg Tablet) 20 mg PO BID [facility] Last Admin: 01/03/23 08:30 Dose: 20 mg Hydroxyzine HCl (Hydroxyzine Hcl 25 Mg Tablet) 25 mg PO Q6H PRN PRN Reason: Anxiety Magnesium Hydroxide (Milk Of Magnesia 30 Ml Oral.Susp) 30 ml PO DAILY PRN PRN Reason: Constipation Mirtazapine (Mirtazapine 7.5 Mg Tablet) 7.5 mg PO BEDTIME [facility] Last Admin: 01/02/23 20:41 Dose: 7.5 mg Olanzapine (Olanzapine 5 Mg Tablet) 5 mg PO BEDTIME [facility] Last Admin: 01/02/23 20:41 Dose: 5 mg Omeprazole (Omeprazole 20 Mg Capsule.Dr) 20 mg PO DAILY@0630 [facility] Last Admin: 01/03/23 06:25 Dose: 20 mg Simethicone (Simethicone 80 Mg Tab.Chew) 80 mg PO QIDWMHS PRN PRN Reason: epigastric discomfort/bloating Last Admin: 01/01/23 08:01 Dose: 80 mg Trazodone HCl (Trazodone Hcl 50 Mg Tablet) 50 mg PO BEDTIME MRX1 PRN PRN Reason: Insomnia Last Admin: 01/01/23 20:17 Dose: 50 mg Allergies Allergies Allergy/AdvReac Type Severity Reaction Status Date / Time Unable to Assess Allergy Verified 12/28/22 18:48 Assessment & Plan Assessment & Plan (1) Mood disorder: Status: Acute Code(s): F39 - Unspecified mood [affective] disorder Plan Pt is a 72-year-old female with a PMH significant for?GERD and thymoma who is admitted to [facility] for increasing depression and passive wishes. Patient was originally admitted on 12/02/2022 to [facility] after being found lying on the side of the road and reported to the police that she was [place] [address] Patient was altered at the time and could provide no reason for why she was walking to the highway. Patient was initially admitted to the medical service for treatment of AMS, hypocalcemia, hypokalemia. Medical consult for admission H&P. Mood disorder Plan as per Psychiatry GERD Patient complaining of burning, gnawing epigastric pain that is preventing her from eating Patient unable to remember what GERD medication she was on, uncertain how long she has been off her medications Medication review indicates patient was on famotidine 40 mg daily, last filled 05/16/2022 Continue Maalox p.r.n. Will restart famotidine at 20mg bid Encourage patient to eat Patient has no other known chronic medical history and no acute medical complaints at this time. BMP grossly unremarkable with no electrolyte. Will sign off at this time. Please re-consult if there are any acute problems or concerns. Plan 12/31 continue current tx. hospitalist consult ordered due to ongoing stomach ache, poor oral intake, less loose stools, afebrile. some dehydration, encouraged to drink fluids. 01/01 Continue treatment plan. 01/02: Will start Lexapro targeting depression. Continue other medications unchanged. 10/9: Continue current regimen and plans Reason for continued inpatient stay Substantial Risk for: med/psych decompensation Time Spent With Patient Time: Total time managing care of this patient today ____ minutes.
[2023-01-03 18:00] VITALS: BP 145/59; PULSE 72; RESP 17; TEMP 36; O2SAT 95
[2023-01-04 08:35] VITALS: BP 128/57; PULSE 91; RESP 18; TEMP 36; O2SAT 98
--- NOTE | 2023-01-04 12:20 | HO.PSYCHPN ---
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 She ate 50% of her breakfast today. Remains flat irritable at times. The social media strategist reported that we will have a family meeting today at 03:00 o'clock, the family wants her back home. The OT reported that she scored 4.0 Ravi test. On interview the patient reports still feeling tired and dysphoric, we are discussing about treatment options. Mental Status Exam Mental Status Exam Patient Appearance: Appropriate Patient Orientation: Person Level of Consciousness: Awake and Appropriate Patient Behavior: Guarded and Passive Mood Description: Withdrawn Affect Description: Constricted Patient Cognition Impaired: Yes Ability to Follow Directions: Good Speech Pattern: Appropriate Hallucinations: None Delusions: Paranoid Ideation Thought Process: Distracted and Slowed Thinking Thought Content: positive for [place] and positive for Poverty of Content Judgement: Fair Diagnostics Vital Signs (24Hr): Vital Signs - 24 hr 01/03/23 18:00 01/04/23 08:35 Temperature 96.8 F 96.8 F Pulse Rate 72 91 Respiratory Rate 17 18 Blood Pressure 145/59 H 128/57 L Pulse Oximetry 95 98 Oxygen Delivery Method Room Air BMI result Body Mass Index 29.3 Labs 12/31/22 14:39 12/31/22 14:39 Medications Medications Current Medications Acetaminophen (Acetaminophen 325 Mg Tablet) 650 mg PO Q6H PRN PRN Reason: Headache/Pain Mild Scale (1-3) Al Hydroxide/Mg Hydroxide (Magnesium Hydrox/Alum Hydrox 30 Ml Oral.Susp) 30 ml PO Q6H PRN PRN Reason: Heartburn/Nausea Last Admin: 12/29/22 08:52 Dose: 30 ml Escitalopram Oxalate (Escitalopram Oxalate 5 Mg Tablet) 5 mg PO DAILY [facility] Last Admin: 01/04/23 08:58 Dose: 5 mg Famotidine (Famotidine 20 Mg Tablet) 20 mg PO BID [facility] Last Admin: 01/04/23 08:58 Dose: 20 mg Hydroxyzine HCl (Hydroxyzine Hcl 25 Mg Tablet) 25 mg PO Q6H PRN PRN Reason: Anxiety Magnesium Hydroxide (Milk Of Magnesia 30 Ml Oral.Susp) 30 ml PO DAILY PRN PRN Reason: Constipation Mirtazapine (Mirtazapine 7.5 Mg Tablet) 7.5 mg PO BEDTIME [facility] Last Admin: 01/03/23 20:18 Dose: 7.5 mg Olanzapine (Olanzapine 5 Mg Tablet) 5 mg PO BEDTIME [facility] Last Admin: 01/03/23 20:18 Dose: 5 mg Omeprazole (Omeprazole 20 Mg Capsule.Dr) 20 mg PO DAILY@0630 [facility] Last Admin: 01/04/23 06:20 Dose: 20 mg Simethicone (Simethicone 80 Mg Tab.Chew) 80 mg PO QIDWMHS PRN PRN Reason: epigastric discomfort/bloating Last Admin: 01/01/23 08:01 Dose: 80 mg Trazodone HCl (Trazodone Hcl 50 Mg Tablet) 50 mg PO BEDTIME MRX1 PRN PRN Reason: Insomnia Last Admin: 01/03/23 20:22 Dose: 50 mg Allergies Allergies Allergy/AdvReac Type Severity Reaction Status Date / Time Unable to Assess Allergy Verified 12/28/22 18:48 Assessment & Plan Assessment & Plan (1) Mood disorder: Status: Acute Code(s): F39 - Unspecified mood [affective] disorder Plan Pt is a 72-year-old female with a PMH significant for?GERD and thymoma who is admitted to [facility] for increasing depression and passive wishes. Patient was originally admitted on 12/02/2022 to [facility] after being found lying on the side of the road and reported to the police that she [place] [address] Patient was altered at the time and could provide no reason for why she was walking to the highway. Patient was initially admitted to the medical service for treatment of AMS, hypocalcemia, hypokalemia. Medical consult for admission H&P. Mood disorder Plan as per Psychiatry GERD Patient complaining of burning, gnawing epigastric pain that is preventing her from eating Patient unable to remember what GERD medication she was on, uncertain how long she has been off her medications Medication review indicates patient was on famotidine 40 mg daily, last filled 05/16/2022 Continue Maalox p.r.n. Will restart famotidine at 20mg bid Encourage patient to eat Patient has no other known chronic medical history and no acute medical complaints at this time. BMP grossly unremarkable with no electrolyte. Will sign off at this time. Please re-consult if there are any acute problems or concerns. Plan 12/31 continue current tx. hospitalist consult ordered due to ongoing stomach ache, poor oral intake, less loose stools, afebrile. some dehydration, encouraged to drink fluids. 01/01 Continue treatment plan. 01/02: Will start Lexapro targeting depression. Continue other medications unchanged. 01/03: Continue current regimen and plans. 01/04 continue same treatment, family meeting over Zoom done Reason for continued inpatient stay Substantial Risk for: inability to function, rapid decompensation and med/psych decompensation Time Spent With Patient Time: Total time managing care of this patient today __20__ minutes.
[2023-01-04 18:00] VITALS: BP 123/58; PULSE 75; RESP 18; TEMP 36.6; O2SAT 92
[2023-01-05 08:21] VITALS: BP 113/65; PULSE 100; RESP 16; TEMP 36.8; O2SAT 93
--- NOTE | 2023-01-05 15:37 | P.PNPSI_ITS ---
Subjective Subjective Date of Service: 01/05/23 Reason For Visit: Major Depressive D/O Recurrent Severe W/O Psyh Subjective Notes: Conditional Voluntary Interim History: The nursing staff reported the patient had been depressed, withdrawn with flat affect she slept well last night and she has been isolative. She was seen that she walks independently but she spends most of the time in her bed. On interview the patient reports some gastric discomfort. We discussed risks, benefits, side-effects and alternatives and she agreed to increase Lexapro to 10 mg p.o. daily to target depression. Mental Status Exam Mental Status Exam Patient Appearance: Appropriate Patient Orientation: Person and Situation Level of Consciousness: Awake and Appropriate Patient Behavior: Guarded and Passive Mood Description: Withdrawn Affect Description: Constricted Patient Cognition Impaired: Yes Ability to Follow Directions: Good Speech Pattern: Clear Hallucinations: None Delusions: Not Present Thought Process: Linear and Evasive Thought Content: positive for [place] and positive for Poverty of Content Judgement: Poor Diagnostics Vital Signs (24Hr): Vital Signs - 24 hr 01/04/23 18:00 01/05/23 08:21 Temperature 97.8 F 98.2 F Pulse Rate 75 100 Respiratory Rate 18 16 Blood Pressure 123/58 L 113/65 Pulse Oximetry 92 93 Oxygen Delivery Method Room Air Room Air BMI result Body Mass Index 29.3 Labs 12/31/22 14:39 12/31/22 14:39 Medications Medications Current Medications Acetaminophen (Acetaminophen 325 Mg Tablet) 650 mg PO Q6H PRN PRN Reason: Headache/Pain Mild Scale (1-3) Al Hydroxide/Mg Hydroxide (Magnesium Hydrox/Alum Hydrox 30 Ml Oral.Susp) 30 ml PO Q6H PRN PRN Reason: Heartburn/Nausea Last Admin: 12/29/22 08:52 Dose: 30 ml Escitalopram Oxalate (Escitalopram Oxalate 10 Mg Tablet) 10 mg PO DAILY [facility] Famotidine (Famotidine 20 Mg Tablet) 20 mg PO BID [facility] Last Admin: 01/05/23 08:24 Dose: 20 mg Hydroxyzine HCl (Hydroxyzine Hcl 25 Mg Tablet) 25 mg PO Q6H PRN PRN Reason: Anxiety Magnesium Hydroxide (Milk Of Magnesia 30 Ml Oral.Susp) 30 ml PO DAILY PRN PRN Reason: Constipation Mirtazapine (Mirtazapine 7.5 Mg Tablet) 7.5 mg PO BEDTIME [facility] Last Admin: 01/04/23 20:39 Dose: 7.5 mg Olanzapine (Olanzapine 5 Mg Tablet) 5 mg PO BEDTIME ANG[facility] Last Admin: 01/04/23 20:40 Dose: 5 mg Omeprazole (Omeprazole 20 Mg Capsule.Dr) 20 mg PO DAILY@0630 [facility] Last Admin: 01/05/23 06:36 Dose: 20 mg Simethicone (Simethicone 80 Mg Tab.Chew) 80 mg PO QIDWMHS PRN PRN Reason: epigastric discomfort/bloating Last Admin: 01/01/23 08:01 Dose: 80 mg Trazodone HCl (Trazodone Hcl 50 Mg Tablet) 50 mg PO BEDTIME MRX1 PRN PRN Reason: Insomnia Last Admin: 01/04/23 20:39 Dose: 50 mg Allergies Allergies Allergy/AdvReac Type Severity Reaction Status Date / Time Unable to Assess Allergy Verified 12/28/22 18:48 Assessment & Plan Assessment & Plan (1) Mood disorder: Status: Acute Code(s): F39 - Unspecified mood [affective] disorder Plan Pt is a 72-year-old female with a PMH significant for?GERD and thymoma who is admitted to [facility] for increasing depression and passive wishes. Patient was originally admitted on 12/02/2022 to [facility] after being found lying on the side of the road and reported to the police that she was [place] [address] Patient was altered at the time and could provide no reason for why she was walking to the highway. Patient was initially admitted to the medical service for treatment of AMS, hypocalcemia, hypokalemia. Medical consult for admission H&P. Mood disorder Plan as per Psychiatry GERD Patient complaining of burning, gnawing epigastric pain that is preventing her from eating Patient unable to remember what GERD medication she was on, uncertain how long she has been off her medications Medication review indicates patient was on famotidine 40 mg daily, last filled 05/16/2022 Continue Maalox p.r.n. Will restart famotidine at 20mg bid Encourage patient to eat Patient has no other known chronic medical history and no acute medical complaints at this time. BMP grossly unremarkable with no electrolyte. Will sign off at this time. Please re-consult if there are any acute problems or concerns. Plan 12/31 continue current tx. hospitalist consult ordered due to ongoing stomach ache, poor oral intake, less loose stools, afebrile. some dehydration, encouraged to drink fluids. 01/01 Continue treatment plan. 01/02: Will start Lexapro targeting depression. Continue other medications unchanged. 01/03: Continue current regimen and plans. 01/04 continue same treatment, family meeting over Zoom done 01/05 increase Lexapro to 10 mg p.o. daily to target depression. Reason for continued inpatient stay Substantial Risk for: inability to function, rapid decompensation and med/psych decompensation Time Spent With Patient Time: Total time managing care of this patient today _20___ minutes.
[2023-01-05 18:00] VITALS: BP 98/62; PULSE 62; RESP 18; TEMP 36.6; O2SAT 95
[2023-01-05] MEDS: Famotidine 20 MG TABLET PO (19:56)
[2023-01-05] MEDS: Mirtazapine 7.5 MG TABLET PO (19:57)
[2023-01-05] MEDS: OLANZapine 5 MG TABLET PO (19:57)
[2023-01-05] MEDS: traZODone HCL 50 MG TABLET PO (19:58)
[2023-01-05] MEDS: Magnesium Hydrox/Alum Hydrox 30 ML ORAL.SUSP PO (19:58)
[2023-01-06] MEDS: Omeprazole 20 MG CAPSULE.DR PO (06:24)
[2023-01-06 08:00] VITALS: BP 126/58; PULSE 60; RESP 16; TEMP 36.4; O2SAT 93
[2023-01-06] MEDS: Famotidine 20 MG TABLET PO ×2 (08:33→20:20)
[2023-01-06] MEDS: Escitalopram Oxalate 10 MG TABLET PO (08:33)
--- NOTE | 2023-01-06 09:39 | P.PNPSI_ITS ---
Subjective Subjective Date of Service: 01/06/23 Reason For Visit: Major Depressive D/O Recurrent Severe W/O Psyh Subjective Notes: Conditional Voluntary Interim History: The nursing staff reported the patient had been fully compliant with treatment, she spends most of the time on her bed. The staff has noticed also that she complains of epigastric pain. Today I tried to contact GI team to reassess the use of famotidine for GERD, I informed the medical team to reassess her. Still depressed. I ordered an MRI but she refused to go today. Mental Status Exam Mental Status Exam Patient Appearance: Appropriate Patient Orientation: Person and Situation Level of Consciousness: Awake and Appropriate Patient Behavior: Guarded and Passive Mood Description: Withdrawn Affect Description: Constricted Patient Cognition Impaired: Yes Ability to Follow Directions: Good Speech Pattern: Clear Hallucinations: None Delusions: Not Present Thought Process: Distracted and Slowed Thinking Thought Content: positive for [place] and positive for Poverty of Content Judgement: Fair Diagnostics Vital Signs (24Hr): Vital Signs - 24 hr 01/05/23 18:00 01/06/23 08:00 Temperature 97.8 F 97.6 F Pulse Rate 62 60 Respiratory Rate 18 16 Blood Pressure 98/62 126/58 L Pulse Oximetry 95 16 L Oxygen Delivery Method Room Air BMI result Body Mass Index 29.3 Labs 12/31/22 14:39 12/31/22 14:39 Medications Medications Current Medications Acetaminophen (Acetaminophen 325 Mg Tablet) 650 mg PO Q6H PRN PRN Reason: Headache/Pain Mild Scale (1-3) Al Hydroxide/Mg Hydroxide (Magnesium Hydrox/Alum Hydrox 30 Ml Oral.Susp) 30 ml PO Q6H PRN PRN Reason: Heartburn/Nausea Last Admin: 01/05/23 19:58 Dose: 30 ml Escitalopram Oxalate (Escitalopram Oxalate 10 Mg Tablet) 10 mg PO DAILY [facility] Last Admin: 01/06/23 08:33 Dose: 10 mg Famotidine (Famotidine 20 Mg Tablet) 20 mg PO BID [facility] Last Admin: 01/06/23 08:33 Dose: 20 mg Hydroxyzine HCl (Hydroxyzine Hcl 25 Mg Tablet) 25 mg PO Q6H PRN PRN Reason: Anxiety Magnesium Hydroxide (Milk Of Magnesia 30 Ml Oral.Susp) 30 ml PO DAILY PRN PRN Reason: Constipation Mirtazapine (Mirtazapine 7.5 Mg Tablet) 7.5 mg PO BEDTIME [facility] Last Admin: 01/05/23 19:57 Dose: 7.5 mg Olanzapine (Olanzapine 5 Mg Tablet) 5 mg PO BEDTIME ANG[facility] Last Admin: 01/05/23 19:57 Dose: 5 mg Omeprazole (Omeprazole 20 Mg Capsule.Dr) 20 mg PO DAILY@0630 [facility] Last Admin: 01/06/23 06:24 Dose: 20 mg Simethicone (Simethicone 80 Mg Tab.Chew) 80 mg PO QIDWMHS PRN PRN Reason: epigastric discomfort/bloating Last Admin: 01/01/23 08:01 Dose: 80 mg Trazodone HCl (Trazodone Hcl 50 Mg Tablet) 50 mg PO BEDTIME MRX1 PRN PRN Reason: Insomnia Last Admin: 01/05/23 19:58 Dose: 50 mg Allergies Allergies Allergy/AdvReac Type Severity Reaction Status Date / Time Unable to Assess Allergy Verified 12/28/22 18:48 Assessment & Plan Assessment & Plan (1) Mood disorder: Status: Acute Code(s): F39 - Unspecified mood [affective] disorder Plan Pt is a 72-year-old female with a PMH significant for?GERD and thymoma who is admitted to [facility] for increasing depression and passive wishes. Patient was originally admitted on 12/02/2022 to [facility] after being found lying on the side of the road and reported to the police that she was [place] [address] Patient was altered at the time and could provide no reason for why she was walking to the highway. Patient was initially admitted to the medical service for treatment of AMS, hypocalcemia, hypokalemia. Medical consult for admission H&P. Mood disorder Plan as per Psychiatry GERD Patient complaining of burning, gnawing epigastric pain that is preventing her from eating Patient unable to remember what GERD medication she was on, uncertain how long she has been off her medications Medication review indicates patient was on famotidine 40 mg daily, last filled 05/16/2022 Continue Maalox p.r.n. Will restart famotidine at 20mg bid Encourage patient to eat Patient has no other known chronic medical history and no acute medical complaints at this time. BMP grossly unremarkable with no electrolyte. Will sign off at this time. Please re-consult if there are any acute problems or concerns. Plan 12/31 continue current tx. hospitalist consult ordered due to ongoing stomach ache, poor oral intake, less loose stools, afebrile. some dehydration, encouraged to drink fluids. 01/01 Continue treatment plan. 01/02: Will start Lexapro targeting depression. Continue other medications unchanged. 01/03: Continue current regimen and plans. 01/04 continue same treatment, family meeting over Zoom done 01/05 increase Lexapro up to 10 mg po daily. 01/06 same treatment, called hospitalist. Reason for continued inpatient stay Substantial Risk for: inability to function, rapid decompensation and med/psych decompensation Time Spent With Patient Time: Total time managing care of this patient today ___20_ minutes.
--- NOTE | 2023-01-06 14:07 | P.CNGI_ITS ---
History of Present Illness Data of Consult Service Date: 01/06/23 Requesting physician: Nick Ramires Primary Care Provider: Unknown Physician HPI [id number] YF with hx of GERD and thymoma admitted to [facility] on 12/29/22 for increasing depression and passive wishes. Patient was originally admitted on 12/02/2022 to [place] after being found lying on the side of the road and reported to the police that she was [place] [address] Patient was altered at the time and could provide no reason for why she was walking to the highway. She was initially admitted to the medical service for treatment of AMS, hypocalcemia, hypokalemia. GI consulted for evaluaton of GERD and epigastric pain. Patient complains of ?GERD?: Burning, gnawing epigastric pain. States she is unable to eat secondary to the pain. Patient is alert and oriented x4, but says she has been having ?memory problems? and is unable to say what GERD medication she was on, when she last took her medication, or how long her GERD symptoms have been occurring. Patient has no other acute or chronic medical concerns at this time. She denied chest pain/pressure, palpitations, shortness of breath, fever, chills, nausea, vomiting. Patient also states her only medical conditions and GERD and a remote hx of thymoma Pt was seen by the hospitalist service and started on Famotidine 20 mg twice daily Omeprazole 20 mg twice daily was added on 01/01/23 Review of Systems 2 Review of Systems: Yes Unobtainable due to mental status PMFSH Social History Social History Household Members: None Household Members Other:: pt lives by self Housing: House Do you presently have visiting nurse or other home services: Yes Patient Tobacco Use Status: Never used Tobacco e-Cigarette/Vaping Use: Never Used Second Hand Smoke Exposure: No service: No Sexual orientation: Straight/Heterosexual Meds Allergies Allergy/AdvReac Type Severity Reaction Status Date / Time Unable to Assess Allergy Verified 12/28/22 18:48 Active Medications: Current Medications Acetaminophen (Acetaminophen 325 Mg Tablet) 650 mg PO Q6H PRN PRN Reason: Headache/Pain Mild Scale (1-3) Al Hydroxide/Mg Hydroxide (Magnesium Hydrox/Alum Hydrox 30 Ml Oral.Susp) 30 ml PO Q6H PRN PRN Reason: Heartburn/Nausea Last Admin: 01/05/23 19:58 Dose: 30 ml Escitalopram Oxalate (Escitalopram Oxalate 10 Mg Tablet) 10 mg PO DAILY [facility] Last Admin: 01/06/23 08:33 Dose: 10 mg Famotidine (Famotidine 20 Mg Tablet) 20 mg PO BID [facility] Last Admin: 01/06/23 08:33 Dose: 20 mg Hydroxyzine HCl (Hydroxyzine Hcl 25 Mg Tablet) 25 mg PO Q6H PRN PRN Reason: Anxiety Magnesium Hydroxide (Milk Of Magnesia 30 Ml Oral.Susp) 30 ml PO DAILY PRN PRN Reason: Constipation Mirtazapine (Mirtazapine 7.5 Mg Tablet) 7.5 mg PO BEDTIME [facility] Last Admin: 01/05/23 19:57 Dose: 7.5 mg Olanzapine (Olanzapine 5 Mg Tablet) 5 mg PO BEDTIME [facility] Last Admin: 01/05/23 19:57 Dose: 5 mg Omeprazole (Omeprazole 20 Mg Capsule.Dr) 20 mg PO DAILY@0630 [facility] Last Admin: 01/06/23 06:24 Dose: 20 mg Simethicone (Simethicone 80 Mg Tab.Chew) 80 mg PO QIDWMHS PRN PRN Reason: epigastric discomfort/bloating Last Admin: 01/01/23 08:01 Dose: 80 mg Trazodone HCl (Trazodone Hcl 50 Mg Tablet) 50 mg PO BEDTIME MRX1 PRN PRN Reason: Insomnia Last Admin: 01/05/23 19:58 Dose: 50 mg Physical Exam 2 Vital Signs: Vital Signs: Last Vital Signs Temp 97.6 F 01/06/23 08:00 Pulse 60 01/06/23 08:00 Resp 16 01/06/23 08:00 BP 126/58 L 01/06/23 08:00 Pulse Ox 16 L 01/06/23 08:00 O2 Del Method Room Air 01/05/23 18:00 BMI result Body Mass Index 29.3 General: AOx3, no acute distress Resp: CTA bilaterally CVS: S1, S2, RRR GI: +BS, NT, no distention Skin: No rash Neuro: Cranial nerves II-XII grossly intact bilaterally. Motor grossly intact bilaterally Extremities: No edema Psych: Pleasant, cooperative Results Labs 01/17/23 14:08 01/17/23 14:08 Assessment and Plan (1) Upper abdominal pain: Status: Resolved Plan 72 YF with hx of GERD and thymoma admitted to [facility] on 12/29/22 for increasing depression and passive wishes. GI consulted for evaluaton of GERD and chronic epigastric pain. RECOMMENDATIONS: 1. Repeat labs and check lipase 2. Abdominal US to rule out pancreatic/biliary source of abdominal pain ADDENDUM: Stool studies were positive for C Diff toxin Abd pain likely due to C Diff colitis ABD US SHOWED: LIVER: The liver is normal in size. The liver contour is normal. Liver echotexture is normal. No focal hepatic lesion. There is no intrahepatic biliary duct dilatation seen. GALLBLADDER: Surgically absent. COMMON BILE DUCT: Normal in caliber measuring 0.5 cm in diameter. RIGHT KIDNEY: Mild hydronephrosis. No renal calculi or focal parenchymal lesions. The kidney measures 9.7 cm in maximum dimension. LEFT KIDNEY: Not well visualized. Mild hydronephrosis. The kidney measures 10.1 cm in maximum dimension. SPLEEN: Normal. The spleen measures 9.1 cm in maximum dimension. IMPRESSION: Mild bilateral hydronephrosis. Left kidney not well visualized. Time Spent With Patient Time: Total time managing care of this patient today ____ minutes. Procedures Date of Service Date of Service: 10/09/23
[2023-01-06] MEDS: Loperamide HCl 2 MG CAPSULE 4 MG PO (18:03)
[2023-01-06 19:35] VITALS: BP 104/61; PULSE 90; RESP 18; TEMP 36.7; O2SAT 93
[2023-01-06] MEDS: traZODone HCL 50 MG TABLET PO (20:20)
[2023-01-06] MEDS: OLANZapine 5 MG TABLET PO (20:20)
[2023-01-06] MEDS: Mirtazapine 7.5 MG TABLET PO (20:20)
[2023-01-07] MEDS: Omeprazole 20 MG CAPSULE.DR PO (06:20)
[2023-01-07 08:00] VITALS: BP 102/57; PULSE 71; RESP 16; TEMP 36.5; O2SAT 94
--- NOTE | 2023-01-07 09:21 | HO.PSYCHPN ---
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 She had been out for meals and she had been compliant with her medications. Yesterday we had a will trazodone the and the gastroenterology consult and so far she is doing much better. On interview the patient reports that she is feeling much better but still dysphoric. Mental Status Exam Mental Status Exam Patient Appearance: Appropriate Patient Orientation: Person and Situation Level of Consciousness: Awake Patient Behavior: Guarded Mood Description: Calm Affect Description: Constricted Patient Cognition Impaired: Yes Ability to Follow Directions: Good Speech Pattern: Clear Hallucinations: None Delusions: Not Present Thought Process: Distracted and Slowed Thinking Thought Content: positive for [place], positive for Circumstantial and positive for Poverty of Content Judgement: Fair Diagnostics Vital Signs (24Hr): Vital Signs - 24 hr 01/06/23 19:35 01/07/23 08:00 Temperature 98.0 F 97.7 F Pulse Rate 90 71 Respiratory Rate 18 16 Blood Pressure 104/61 102/57 L Pulse Oximetry 93 94 Oxygen Delivery Method Room Air Room Air BMI result Body Mass Index 29.3 Labs 01/07/23 09:08 12/31/22 14:39 Medications Medications Current Medications Acetaminophen (Acetaminophen 325 Mg Tablet) 650 mg PO Q6H PRN PRN Reason: Headache/Pain Mild Scale (1-3) Al Hydroxide/Mg Hydroxide (Magnesium Hydrox/Alum Hydrox 30 Ml Oral.Susp) 30 ml PO Q6H PRN PRN Reason: Heartburn/Nausea Last Admin: 01/05/23 19:58 Dose: 30 ml Escitalopram Oxalate (Escitalopram Oxalate 10 Mg Tablet) 10 mg PO DAILY [facility] Last Admin: 01/06/23 08:33 Dose: 10 mg Famotidine (Famotidine 20 Mg Tablet) 20 mg PO BID [facility] Last Admin: 01/06/23 20:20 Dose: 20 mg Hydroxyzine HCl (Hydroxyzine Hcl 25 Mg Tablet) 25 mg PO Q6H PRN PRN Reason: Anxiety Loperamide HCl (Loperamide Hcl 2 Mg Capsule) 4 mg PO Q6H PRN PRN Reason: Diarrhea Last Admin: 01/06/23 18:03 Dose: 4 mg Magnesium Hydroxide (Milk Of Magnesia 30 Ml Oral.Susp) 30 ml PO DAILY PRN PRN Reason: Constipation Mirtazapine (Mirtazapine 7.5 Mg Tablet) 7.5 mg PO BEDTIME [facility] Last Admin: 01/06/23 20:20 Dose: 7.5 mg Olanzapine (Olanzapine 5 Mg Tablet) 5 mg PO BEDTIME [facility] Last Admin: 01/06/23 20:20 Dose: 5 mg Omeprazole (Omeprazole 20 Mg Capsule.Dr) 20 mg PO DAILY@0630 [facility] Last Admin: 01/07/23 06:20 Dose: 20 mg Simethicone (Simethicone 80 Mg Tab.Chew) 80 mg PO QIDWMHS PRN PRN Reason: epigastric discomfort/bloating Last Admin: 01/01/23 08:01 Dose: 80 mg Trazodone HCl (Trazodone Hcl 50 Mg Tablet) 50 mg PO BEDTIME MRX1 PRN PRN Reason: Insomnia Last Admin: 01/06/23 20:20 Dose: 50 mg Allergies Allergies Allergy/AdvReac Type Severity Reaction Status Date / Time Unable to Assess Allergy Verified 12/28/22 18:48 Assessment & Plan Assessment & Plan (1) Upper abdominal pain: Status: Acute Code(s): R10.10 - Upper abdominal pain, unspecified Plan 72 YF with hx of GERD and thymoma admitted to [facility] on 12/29/22 for increasing depression and passive wishes. GI consulted for evaluaton of GERD and chronic epigastric pain. RECOMMENDATIONS: 1. Repeat labs and check lipase 2. Abdominal US to rule out pancreatic/biliary source of abdominal pain Plan 1. Continue with antidepressants. 2. Reassessment with results Reason for continued inpatient stay Substantial Risk for: inability to function, rapid decompensation and med/psych decompensation Time Spent With Patient Time: Total time managing care of this patient today __20__ minutes.
[2023-01-07 09:34] LABS: MANUAL DIFF FLAG NO
[2023-01-07 09:36] LABS: Lipase 19 U/L (8-78)
[2023-01-07 09:37] LABS: Basophils Absolute Auto 0.1 X10*3/uL (0.0-0.2); Basophils Percent Auto 0.6 % (0-2); Eosinophils Absolute Auto 0.3 X10*3/uL (0.0-0.4); Eosinophils Percent Auto 3.5 % (0-4); Hematocrit 46.9 % (37.0-47.0); Hemoglobin 15.1 g/dl (12.0-16.0); Imm Gran Abs Auto 0.03 X10*3/uL (0.00-0.03); Imm Gran Pct Auto 0.3 % (0.0-0.4); Lymphocytes Absolute Auto 1.6 X10*3/uL (1.2-4.9); Lymphocytes Percent Auto 17.4 % (20-40); Mean Corpuscular HGB Conc 32.2 g/dl (31.0-35.0); Mean Corpuscular Hemoglobin 31.1 pg (27.0-33.0); Mean Corpuscular Volume 96.5 fL (80.0-98.0); Mean Platelet Volume 11.3 fL (9.4-12.3); Monocytes Absolute Auto 0.7 X10*3/uL (0.1-1.2); Monocytes Percent Auto 7.8 % (2-11); Neutrophils Absolute Auto 6.3 x10*3/uL (2.0-8.3); Neutrophils Percent Auto 70.4 % (45-73); Platelet Count 279 X10*3/uL (160-400); Red Blood Count 4.86 X10*6/uL (4.20-5.50); Red Cell Distribution Width 17.2 % (11.0-16.0)
[2023-01-07] MEDS: Famotidine 20 MG TABLET PO ×2 (10:14→21:10)
[2023-01-07] MEDS: Escitalopram Oxalate 10 MG TABLET PO (10:14)
[2023-01-07 18:00] VITALS: BP 116/58; PULSE 89; RESP 17; TEMP 36.5; O2SAT 93
[2023-01-07] MEDS: traZODone HCL 50 MG TABLET PO (21:10)
[2023-01-07] MEDS: Mirtazapine 7.5 MG TABLET PO (21:10)
[2023-01-07] MEDS: OLANZapine 5 MG TABLET PO (21:10)
[2023-01-08] MEDS: Omeprazole 20 MG CAPSULE.DR PO (05:47)
[2023-01-08 06:00] VITALS: BP 130/63; PULSE 108; RESP 18; TEMP 37.4; O2SAT 93
[2023-01-08] MEDS: Acetaminophen 325 MG TABLET 650 MG PO (08:50)
[2023-01-08] MEDS: Escitalopram Oxalate 10 MG TABLET PO (08:51)
[2023-01-08] MEDS: Famotidine 20 MG TABLET PO ×2 (08:52→20:57)
--- NOTE | 2023-01-08 13:57 | PC.NURSE ---
Patient claimed to be incontinent of loose stools x3 during the evening. Today she had 2 episodes of explosive diarrhea, yellow, foul smelling and mucousy. Clened up with assistance of 2. Tereza Bradley [employer] TE[employer] OFFICER updated about the diarrhea, low grade t 99.3, increased pulse 108, poor intake and new delusions. Stool spec obtained for C Diff testing, BUN and Lytes ordered. Patient is flat, helpless and cooperative. Clear fluids encouraged.
[2023-01-08 14:14] LABS: Anion Gap 14 (12-20); Blood Urea Nitrogen 21 mg/dL (9-16); Carbon Dioxide 19 mmol/L (22-29); Chloride 109 mmol/L (96-108); Potassium 3.4 mmol/L (3.3-5.1); Sodium 139 mmol/L (135-145)
[2023-01-08 14:16] LABS: CDiff Gene PCR POSITIVE (Negative)
[2023-01-08 15:55] LABS: CDIFF Internal ctrl Dots and bkg OK (V); CDiff Toxin Positive (Negative)
--- NOTE | 2023-01-08 16:12 | PC.NURSE ---
Patient is positive for C Diff A+B toxin . train caller Tereza Bradley [employer]AR [employer]ERM[employer] TECHNICIAN notified of positive result. Contact precautions initiated.
--- NOTE | 2023-01-08 16:23 | HO.PSYCHPN ---
Subjective Subjective Date of Service: 01/08/23 Reason For Visit: Major Depressive D/O Recurrent Severe W/O Psyh Interim History: The nursing staff report pt not eating or drinking fluids; she has had several bouts of loose watery and yellow stool today; reports GI discomfort; she had been compliant with her medications. On interview the patient reports that she is feeling tired abd depressed; no appetite and reports discomfort from diarrhea. Medication Compliance: Yes Side effects from medications: No Attending Groups: No Review of Systems Acute medical concerns: No c- diff positive Medical Review of Systems: changed Review of Systems: abdominal discomfort, fatigue Review of Systems Review of Systems Epigastric pain with diarrhea Patient has no other acute medical concerns at this time Yes Unobtainable due to mental status Mental Status Exam Mental Status Exam Patient Appearance: Appropriate Patient Orientation: Person and Situation Level of Consciousness: Awake Patient Behavior: Guarded and Isolative Mood Description: Calm Affect Description: Constricted Patient Cognition Impaired: Yes Ability to Follow Directions: Good Speech Pattern: Clear Thought Process: Goal Oriented Thought Content: positive for Goal Oriented Diagnostics Vital Signs (24Hr): Vital Signs - 24 hr 01/07/23 18:00 01/08/23 06:00 Temperature 97.7 F 99.3 F Pulse Rate 89 108 H Respiratory Rate 17 18 Blood Pressure 116/58 L 130/63 Pulse Oximetry 93 93 Oxygen Delivery Method Room Air Room Air BMI result Body Mass Index 29.3 Labs 01/07/23 09:08 01/08/23 13:52 Labs: Laboratory Results - last 48 hr 01/07/23 01/07/23 01/08/23 09:02 09:08 11:15 WBC 9.0 RBC 4.86 Hgb 15.1 Hct 46.9 MCV 96.5 MCH 31.1 MCHC 32.2 RDW 17.2 H Plt Count 279 MPV 11.3 Immature Gran % (Auto) 0.3 Neut % (Auto) 70.4 Lymph % (Auto) 17.4 L [place] % (Auto) 7.8 Eos % (Auto) 3.5 Baso % (Auto) 0.6 Lymph # (Auto) 1.6 [place] # (Auto) 0.7 Eos # (Auto) 0.3 Baso # (Auto) 0.1 Abs Immat Gran (auto) 0.03 Absolute Neuts (auto) 6.3 Absolute Nucleated RBC 0.000 Nucleated RBC % (auto) 0.0 Sodium Potassium Chloride Carbon Dioxide Anion Gap BUN Lipase 19 C. difficile Tox B Gene POSITIVE A* C. difficile Toxin A&B Positive A* C. difficile Interpret SEE NOTE 01/08/23 13:52 WBC RBC Hgb Hct MCV MCH MCHC RDW Plt Count MPV Immature Gran % (Auto) Neut % (Auto) Lymph % (Auto) [place] % (Auto) Eos % (Auto) Baso % (Auto) Lymph # (Auto) [place] # (Auto) Eos # (Auto) Baso # (Auto) Abs Immat Gran (auto) Absolute Neuts (auto) Absolute Nucleated RBC Nucleated RBC % (auto) Sodium 139 Potassium 3.4 D Chloride 109 H Carbon Dioxide 19 L Anion Gap 14 BUN 21 H Lipase C. difficile Tox B Gene C. difficile Toxin A&B C. difficile Interpret Imaging Radiology Impressions: ITS Impressions Abdomen Ultrasound 01/07/23 08:45 IMPRESSION: Mild bilateral hydronephrosis. Left kidney not well visualized. Medications Medications Current Medications Acetaminophen (Acetaminophen 325 Mg Tablet) 650 mg PO Q6H PRN PRN Reason: Headache/Pain Mild Scale (1-3) Last Admin: 01/08/23 08:50 Dose: 650 mg Al Hydroxide/Mg Hydroxide (Magnesium Hydrox/Alum Hydrox 30 Ml Oral.Susp) 30 ml PO Q6H PRN PRN Reason: Heartburn/Nausea Last Admin: 01/05/23 19:58 Dose: 30 ml Escitalopram Oxalate (Escitalopram Oxalate 10 Mg Tablet) 10 mg PO DAILY [facility] Last Admin: 01/08/23 08:51 Dose: 10 mg Famotidine (Famotidine 20 Mg Tablet) 20 mg PO BID [facility] Last Admin: 01/08/23 08:52 Dose: 20 mg Fidaxomicin (Fidaxomicin 200 Mg Tablet) 200 mg PO Q12H [facility] Hydroxyzine HCl (Hydroxyzine Hcl 25 Mg Tablet) 25 mg PO Q6H PRN PRN Reason: Anxiety Loperamide HCl (Loperamide Hcl 2 Mg Capsule) 4 mg PO Q6H PRN PRN Reason: Diarrhea Last Admin: 01/06/23 18:03 Dose: 4 mg Magnesium Hydroxide (Milk Of Magnesia 30 Ml Oral.Susp) 30 ml PO DAILY PRN PRN Reason: Constipation Mirtazapine (Mirtazapine 7.5 Mg Tablet) 7.5 mg PO BEDTIME [facility] Last Admin: 01/07/23 21:10 Dose: 7.5 mg Olanzapine (Olanzapine 5 Mg Tablet) 5 mg PO BEDTIME [facility] Last Admin: 01/07/23 21:10 Dose: 5 mg Omeprazole (Omeprazole 20 Mg Capsule.Dr) 20 mg PO DAILY@0630 [facility] Last Admin: 01/08/23 05:47 Dose: 20 mg Simethicone (Simethicone 80 Mg Tab.Chew) 80 mg PO QIDWMHS PRN PRN Reason: epigastric discomfort/bloating Last Admin: 01/01/23 08:01 Dose: 80 mg Trazodone HCl (Trazodone Hcl 50 Mg Tablet) 50 mg PO BEDTIME MRX1 PRN PRN Reason: Insomnia Last Admin: 01/07/23 21:10 Dose: 50 mg Allergies Allergies Allergy/AdvReac Type Severity Reaction Status Date / Time Unable to Assess Allergy Verified 12/28/22 18:48 Assessment & Plan Assessment & Plan (1) Upper abdominal pain: Status: Acute Code(s): R10.10 - Upper abdominal pain, unspecified (2) Mood disorder: Status: Acute Code(s): F39 - Unspecified mood [affective] disorder (3) Delirium: Status: Acute Code(s): R41.0 - Disorientation, unspecified Plan 72 YF with hx of GERD and thymoma admitted to [facility] on 12/29/22 for increasing depression and passive wishes. GI consulted for evaluaton of GERD and chronic epigastric pain. Plan 1. Continue with antidepressants. 2. Reassessment with results 3.TW consult with pharmacy 4. start fidaxomicin 200mg q 12 x 10 days 4. infectious disease consult Reason for continued inpatient stay Substantial Risk for: harm to self, inability to function and med/psych decompensation Time Spent With Patient Time: Total time managing care of this patient today ____ minutes.
--- NOTE | 2023-01-08 16:28 | PC.NURSE ---
New orders obtained for Fidaoxomicin 200mg PO Q 12 hours along with ID Consult. Patient updated.
[2023-01-08] MEDS: Fidaxomicin 200 MG TABLET PO (16:53)
--- NOTE | 2023-01-08 16:54 | PC.NURSE ---
First dose of Fidaoxomicin given at 1653. Patient encouraged to eat and drink extra fluids. She ate 100% of supper and drank 480cc of Gingerale.
[2023-01-08 18:00] VITALS: BP 123/58; PULSE 96; RESP 18; TEMP 36.7; O2SAT 92
[2023-01-08] MEDS: Mirtazapine 7.5 MG TABLET PO (20:57)
[2023-01-08] MEDS: OLANZapine 5 MG TABLET PO (20:57)
[2023-01-08] MEDS: traZODone HCL 50 MG TABLET PO (20:57)
[2023-01-09] MEDS: Fidaxomicin 200 MG TABLET PO ×2 (05:13→16:10)
[2023-01-09] MEDS: Omeprazole 20 MG CAPSULE.DR PO (05:30)
[2023-01-09 06:00] VITALS: BP 105/55; PULSE 84; RESP 18; TEMP 36.6; O2SAT 93
[2023-01-09] MEDS: Escitalopram Oxalate 10 MG TABLET PO (08:42)
[2023-01-09] MEDS: Famotidine 20 MG TABLET PO ×2 (08:42→21:30)
--- NOTE | 2023-01-09 11:03 | HO.PSYCHPN ---
Subjective Subjective Date of Service: 01/09/23 Reason For Visit: Major Depressive D/O Recurrent Severe W/O Psyh Interim History: The nursing staff report she is still not eating or drinking fluid much; started on fidaxomicin; on contact precautions; infectious disease consult pending; she continues with bouts of loose watery and yellow stool today; reports no GI discomfort today; she had been compliant with her medications. On interview the patient reports that she is feeling tired and depressed; no appetite and reports discomfort from diarrhea.started on zofran for nausea to help with PO intake Medication Compliance: Yes Side effects from medications: No Attending Groups: No Review of Systems c-diff decreased PO intake Medical Review of Systems: unchanged Review of Systems Review of Systems Epigastric pain with diarrhea Patient has no other acute medical concerns at this time Yes Unobtainable due to mental status Mental Status Exam Mental Status Exam Patient Appearance: Appropriate Patient Orientation: Person and Situation Level of Consciousness: Awake Patient Behavior: Guarded and Isolative Mood Description: Calm Affect Description: Constricted Patient Cognition Impaired: Yes Ability to Follow Directions: Good Speech Pattern: Clear Judgement: Fair Diagnostics Vital Signs (24Hr): Vital Signs - 24 hr 01/08/23 18:00 01/09/23 06:00 Temperature 98.1 F 97.8 F Pulse Rate 96 84 Respiratory Rate 18 18 Blood Pressure 123/58 L 105/55 L Pulse Oximetry 92 93 Oxygen Delivery Method Room Air Room Air BMI result Body Mass Index 29.3 Labs 01/07/23 09:08 01/08/23 13:52 Labs: Laboratory Results - last 48 hr 01/08/23 01/08/23 11:15 13:52 Sodium 139 Potassium 3.4 D Chloride 109 H Carbon Dioxide 19 L Anion Gap 14 BUN 21 H C. difficile Tox B Gene POSITIVE A* C. difficile Toxin A&B Positive A* C. difficile Interpret SEE NOTE Imaging Radiology Impressions: ITS Impressions Abdomen Ultrasound 01/07/23 08:45 IMPRESSION: Mild bilateral hydronephrosis. Left kidney not well visualized. Medications Medications Current Medications Acetaminophen (Acetaminophen 325 Mg Tablet) 650 mg PO Q6H PRN PRN Reason: Headache/Pain Mild Scale (1-3) Last Admin: 01/08/23 08:50 Dose: 650 mg Al Hydroxide/Mg Hydroxide (Magnesium Hydrox/Alum Hydrox 30 Ml Oral.Susp) 30 ml PO Q6H PRN PRN Reason: Heartburn/Nausea Last Admin: 01/05/23 19:58 Dose: 30 ml Escitalopram Oxalate (Escitalopram Oxalate 10 Mg Tablet) 10 mg PO DAILY [facility] Last Admin: 01/09/23 08:42 Dose: 10 mg Famotidine (Famotidine 20 Mg Tablet) 20 mg PO BID [facility] Last Admin: 01/09/23 08:42 Dose: 20 mg Fidaxomicin (Fidaxomicin 200 Mg Tablet) 200 mg PO Q12H [facility] Last Admin: 01/09/23 05:13 Dose: 200 mg Hydroxyzine HCl (Hydroxyzine Hcl 25 Mg Tablet) 25 mg PO Q6H PRN PRN Reason: Anxiety Loperamide HCl (Loperamide Hcl 2 Mg Capsule) 4 mg PO Q6H PRN PRN Reason: Diarrhea Last Admin: 01/06/23 18:03 Dose: 4 mg Magnesium Hydroxide (Milk Of Magnesia 30 Ml Oral.Susp) 30 ml PO DAILY PRN PRN Reason: Constipation Mirtazapine (Mirtazapine 7.5 Mg Tablet) 7.5 mg PO BEDTIME [facility] Last Admin: 01/08/23 20:57 Dose: 7.5 mg Olanzapine (Olanzapine 5 Mg Tablet) 5 mg PO BEDTIME [facility] Last Admin: 01/08/23 20:57 Dose: 5 mg Omeprazole (Omeprazole 20 Mg Capsule.Dr) 20 mg PO DAILY@0630 [facility] Last Admin: 01/09/23 05:30 Dose: 20 mg Simethicone (Simethicone 80 Mg Tab.Chew) 80 mg PO QIDWMHS PRN PRN Reason: epigastric discomfort/bloating Last Admin: 01/01/23 08:01 Dose: 80 mg Trazodone HCl (Trazodone Hcl 50 Mg Tablet) 50 mg PO BEDTIME MRX1 PRN PRN Reason: Insomnia Last Admin: 01/08/23 20:57 Dose: 50 mg Allergies Allergies Allergy/AdvReac Type Severity Reaction Status Date / Time Unable to Assess Allergy Verified 12/28/22 18:48 Assessment & Plan Assessment & Plan (1) Upper abdominal pain: Status: Acute Code(s): R10.10 - Upper abdominal pain, unspecified (2) Mood disorder: Status: Acute Code(s): F39 - Unspecified mood [affective] disorder (3) Delirium: Status: Acute Code(s): R41.0 - Disorientation, unspecified Plan 72 YF with hx of GERD and thymoma admitted to [facility] on 12/29/22 for increasing depression and passive wishes. GI consulted for evaluaton of GERD and chronic epigastric pain. Plan 1. Continue with antidepressants. 2. Reassessment with results 3.TW consult with pharmacy 4. start fidaxomicin 200mg q 12 x 10 days 4. infectious disease consult Patient educated on: diagnosis, medication risk/benefits and medical condition Informed Consent: understands and further education needed Reason for continued inpatient stay Substantial Risk for: inability to function and med/psych decompensation Time Spent With Patient Time: Total time managing care of this patient today ____ minutes.
[2023-01-09 18:00] VITALS: BP 112/62; PULSE 77; RESP 16; TEMP 36.3; O2SAT 94
[2023-01-09] MEDS: OLANZapine 5 MG TABLET PO (21:30)
[2023-01-09] MEDS: traZODone HCL 50 MG TABLET PO (21:30)
[2023-01-09] MEDS: Mirtazapine 7.5 MG TABLET PO (21:30)
[2023-01-09] MEDS: Acetaminophen 325 MG TABLET 650 MG PO (21:30)
[2023-01-10] MEDS: Fidaxomicin 200 MG TABLET PO ×2 (04:30→20:56)
[2023-01-10] MEDS: Omeprazole 20 MG CAPSULE.DR PO (06:12)
[2023-01-10 08:00] VITALS: BP 119/56; PULSE 66; RESP 18; TEMP 36.4; O2SAT 93
[2023-01-10] MEDS: Famotidine 20 MG TABLET PO ×2 (09:16→20:55)
[2023-01-10] MEDS: Escitalopram Oxalate 10 MG TABLET PO (09:16)
--- NOTE | 2023-01-10 11:00 | P.PNPSI_ITS ---
Subjective Subjective Date of Service: 01/10/23 Reason For Visit: Major Depressive D/O Recurrent Severe W/O Psyh Subjective Notes: Conditional Voluntary Interim History: Nursing staff reported the patient was diagnosed with Clostridium difficile him over the weekend she had to be moved was in her room. She slept all night and she is on antibiotics. On interview the patient denies new symptoms I explained about her diagnosis and the need to be in isolation on the meantime. We will continue with the same treatment. Mental Status Exam Mental Status Exam Patient Appearance: Appropriate Patient Orientation: Person and Situation Level of Consciousness: Awake and Appropriate Patient Behavior: Guarded and Passive Mood Description: Withdrawn Affect Description: Constricted Patient Cognition Impaired: Yes Ability to Follow Directions: Good Speech Pattern: Clear Hallucinations: None Delusions: Not Present Thought Process: Linear Thought Content: positive for [place] and positive for Goal Oriented Judgement: Fair Diagnostics Vital Signs (24Hr): Vital Signs - 24 hr 01/09/23 18:00 01/10/23 08:00 Temperature 97.4 F 97.6 F Pulse Rate 77 66 Respiratory Rate 16 18 Blood Pressure 112/62 119/56 L Pulse Oximetry 94 93 Oxygen Delivery Method Room Air Room Air BMI result Body Mass Index 29.3 Labs 01/07/23 09:08 01/08/23 13:52 Labs: Laboratory Results - last 48 hr 01/08/23 01/08/23 11:15 13:52 Sodium 139 Potassium 3.4 D Chloride 109 H Carbon Dioxide 19 L Anion Gap 14 BUN 21 H C. difficile Tox B Gene POSITIVE A* C. difficile Toxin A&B Positive A* C. difficile Interpret SEE NOTE Imaging Radiology Impressions: ITS Impressions Abdomen Ultrasound 01/07/23 08:45 IMPRESSION: Mild bilateral hydronephrosis. Left kidney not well visualized. Medications Medications Current Medications Acetaminophen (Acetaminophen 325 Mg Tablet) 650 mg PO Q6H PRN PRN Reason: Headache/Pain Mild Scale (1-3) Last Admin: 01/09/23 21:30 Dose: 650 mg Al Hydroxide/Mg Hydroxide (Magnesium Hydrox/Alum Hydrox 30 Ml Oral.Susp) 30 ml PO Q6H PRN PRN Reason: Heartburn/Nausea Last Admin: 01/05/23 19:58 Dose: 30 ml Escitalopram Oxalate (Escitalopram Oxalate 10 Mg Tablet) 10 mg PO DAILY [facility] Last Admin: 01/10/23 09:16 Dose: 10 mg Famotidine (Famotidine 20 Mg Tablet) 20 mg PO BID [facility] Last Admin: 01/10/23 09:16 Dose: 20 mg Fidaxomicin (Fidaxomicin 200 Mg Tablet) 200 mg PO BID [facility] Hydroxyzine HCl (Hydroxyzine Hcl 25 Mg Tablet) 25 mg PO Q6H PRN PRN Reason: Anxiety Loperamide HCl (Loperamide Hcl 2 Mg Capsule) 4 mg PO Q6H PRN PRN Reason: Diarrhea Last Admin: 01/06/23 18:03 Dose: 4 mg Magnesium Hydroxide (Milk Of Magnesia 30 Ml Oral.Susp) 30 ml PO DAILY PRN PRN Reason: Constipation Mirtazapine (Mirtazapine 7.5 Mg Tablet) 7.5 mg PO BEDTIME [facility] Last Admin: 01/09/23 21:30 Dose: 7.5 mg Olanzapine (Olanzapine 5 Mg Tablet) 5 mg PO BEDTIME [facility] Last Admin: 01/09/23 21:30 Dose: 5 mg Omeprazole (Omeprazole 20 Mg Capsule.Dr) 20 mg PO DAILY@0630 [facility] Last Admin: 01/10/23 06:12 Dose: 20 mg Ondansetron HCl (Ondansetron Odt 4 Mg Tab.Rapdis) 4 mg TRANSLINGU Q8H PRN PRN Reason: Nausea Simethicone (Simethicone 80 Mg Tab.Chew) 80 mg PO QIDWMHS PRN PRN Reason: epigastric discomfort/bloating Last Admin: 01/01/23 08:01 Dose: 80 mg Trazodone HCl (Trazodone Hcl 50 Mg Tablet) 50 mg PO BEDTIME MRX1 PRN PRN Reason: Insomnia Last Admin: 01/09/23 21:30 Dose: 50 mg Allergies Allergies Allergy/AdvReac Type Severity Reaction Status Date / Time Unable to Assess Allergy Verified 12/28/22 18:48 Assessment & Plan Assessment & Plan (1) Upper abdominal pain: Status: Acute Code(s): R10.10 - Upper abdominal pain, unspecified (2) Mood disorder: Status: Acute Code(s): F39 - Unspecified mood [affective] disorder (3) Delirium: Status: Acute Code(s): R41.0 - Disorientation, unspecified Plan 72 YF with hx of GERD and thymoma admitted to [facility] on 12/29/22 for increasing depression and passive wishes. GI consulted for evaluaton of GERD and chronic epigastric pain. Plan 1. Continue with antidepressants. 2. Reassessment with results 3.TW consult with pharmacy 4. start fidaxomicin 200mg q 12 x 10 days 4. infectious disease consult Reason for continued inpatient stay Substantial Risk for: inability to function, rapid decompensation and med/psych decompensation Time Spent With Patient Time: Total time managing care of this patient today ___20_ minutes.
[2023-01-10 18:00] VITALS: BP 118/58; PULSE 73; RESP 18; TEMP 36.3; O2SAT 94
--- NOTE | 2023-01-10 18:46 | PC.NURSE ---
Pt continues ABT therapy for c.diff. Reported one loose stool. Precautions maintained. VSS, afebrile. Pt consumed 50% for lunch and supper. Refused breakfast. Fluids encouraged. Pt denies pain.
[2023-01-10] MEDS: Mirtazapine 7.5 MG TABLET PO (20:55)
[2023-01-10] MEDS: traZODone HCL 50 MG TABLET PO (20:55)
[2023-01-10] MEDS: OLANZapine 5 MG TABLET PO (20:55)
[2023-01-11] MEDS: Omeprazole 20 MG CAPSULE.DR PO (06:39)
[2023-01-11 08:23] VITALS: BP 129/69; PULSE 77; RESP 16; TEMP 35.9; O2SAT 95
[2023-01-11] MEDS: Fidaxomicin 200 MG TABLET PO ×2 (08:23→21:02)
[2023-01-11] MEDS: Famotidine 20 MG TABLET PO ×2 (08:23→21:03)
[2023-01-11] MEDS: Escitalopram Oxalate 10 MG TABLET PO (08:23)
--- NOTE | 2023-01-11 13:14 | P.PNPSI_ITS ---
Subjective Subjective Date of Service: 01/11/23 Reason For Visit: Major Depressive D/O Recurrent Severe W/O Psyh Subjective Notes: Conditional Voluntary Interim History: The nursing staff reported the patient still has diarrhea and she remains most of the time on her bed. Today she has small amount of feces in the morning. Still with a Street in the physical infection. On interview the patient reports that she is feeling tired, vital signs stable, compliant with treatment. Still on isolation. Mental Status Exam Mental Status Exam Patient Appearance: Appropriate Patient Orientation: Person and Situation Level of Consciousness: Awake and Appropriate Patient Behavior: Guarded and Passive Mood Description: Withdrawn Affect Description: Constricted Patient Cognition Impaired: Yes Ability to Follow Directions: Good Speech Pattern: Clear Hallucinations: None Delusions: Not Present Thought Process: Distracted Thought Content: positive for [place] and positive for Circumstantial Judgement: Fair Diagnostics Vital Signs (24Hr): Vital Signs - 24 hr 01/10/23 18:00 01/11/23 08:23 Temperature 97.4 F 96.7 F L Pulse Rate 73 77 Respiratory Rate 18 16 Blood Pressure 118/58 L 129/69 Pulse Oximetry 94 95 Oxygen Delivery Method Room Air Room Air BMI result Body Mass Index 29.3 Labs 01/07/23 09:08 01/08/23 13:52 Imaging Radiology Impressions: ITS Impressions Abdomen Ultrasound 01/07/23 08:45 IMPRESSION: Mild bilateral hydronephrosis. Left kidney not well visualized. Medications Medications Current Medications Acetaminophen (Acetaminophen 325 Mg Tablet) 650 mg PO Q6H PRN PRN Reason: Headache/Pain Mild Scale (1-3) Last Admin: 01/09/23 21:30 Dose: 650 mg Al Hydroxide/Mg Hydroxide (Magnesium Hydrox/Alum Hydrox 30 Ml Oral.Susp) 30 ml PO Q6H PRN PRN Reason: Heartburn/Nausea Last Admin: 01/05/23 19:58 Dose: 30 ml Escitalopram Oxalate (Escitalopram Oxalate 10 Mg Tablet) 10 mg PO DAILY [facility] Last Admin: 01/11/23 08:23 Dose: 10 mg Famotidine (Famotidine 20 Mg Tablet) 20 mg PO BID [facility] Last Admin: 01/11/23 08:23 Dose: 20 mg Fidaxomicin (Fidaxomicin 200 Mg Tablet) 200 mg PO BID [facility] Last Admin: 01/11/23 08:23 Dose: 200 mg Hydroxyzine HCl (Hydroxyzine Hcl 25 Mg Tablet) 25 mg PO Q6H PRN PRN Reason: Anxiety Loperamide HCl (Loperamide Hcl 2 Mg Capsule) 4 mg PO Q6H PRN PRN Reason: Diarrhea Last Admin: 01/06/23 18:03 Dose: 4 mg Magnesium Hydroxide (Milk Of Magnesia 30 Ml Oral.Susp) 30 ml PO DAILY PRN PRN Reason: Constipation Mirtazapine (Mirtazapine 7.5 Mg Tablet) 7.5 mg PO BEDTIME [facility] Last Admin: 01/10/23 20:55 Dose: 7.5 mg Olanzapine (Olanzapine 5 Mg Tablet) 5 mg PO BEDTIME [facility] Last Admin: 01/10/23 20:55 Dose: 5 mg Omeprazole (Omeprazole 20 Mg Capsule.Dr) 20 mg PO DAILY@0630 [facility] Last Admin: 01/11/23 06:39 Dose: 20 mg Ondansetron HCl (Ondansetron Odt 4 Mg Tab.Rapdis) 4 mg TRANSLINGU Q8H PRN PRN Reason: Nausea Simethicone (Simethicone 80 Mg Tab.Chew) 80 mg PO QIDWMHS PRN PRN Reason: epigastric discomfort/bloating Last Admin: 01/01/23 08:01 Dose: 80 mg Trazodone HCl (Trazodone Hcl 50 Mg Tablet) 50 mg PO BEDTIME MRX1 PRN PRN Reason: Insomnia Last Admin: 01/10/23 20:55 Dose: 50 mg Allergies Allergies Allergy/AdvReac Type Severity Reaction Status Date / Time Unable to Assess Allergy Verified 12/28/22 18:48 Assessment & Plan Assessment & Plan (1) Upper abdominal pain: Status: Acute Code(s): R10.10 - Upper abdominal pain, unspecified (2) Mood disorder: Status: Acute Code(s): F39 - Unspecified mood [affective] disorder (3) Delirium: Status: Acute Code(s): R41.0 - Disorientation, unspecified Plan 72 YF with hx of GERD and thymoma admitted to [facility] on 12/29/22 for increasing depression and passive wishes. GI consulted for evaluaton of GERD and chronic epigastric pain. Plan 1. Continue with antidepressants. 2. Reassessment with results 3.TW consult with pharmacy 4. start fidaxomicin 200mg q 12 x 10 days 4. infectious disease consult Reason for continued inpatient stay Substantial Risk for: inability to function, rapid decompensation and med/psych decompensation Time Spent With Patient Time: Total time managing care of this patient today __20__ minutes.
[2023-01-11 18:00] VITALS: BP 102/63; PULSE 72; RESP 16; TEMP 35.8; O2SAT 97
[2023-01-11] MEDS: Mirtazapine 7.5 MG TABLET PO (21:02)
[2023-01-11] MEDS: OLANZapine 5 MG TABLET PO (21:02)
[2023-01-11] MEDS: traZODone HCL 50 MG TABLET PO (21:02)
[2023-01-12] MEDS: Omeprazole 20 MG CAPSULE.DR PO (06:23)
--- NOTE | 2023-01-12 07:39 | HO.PSYCHPN ---
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 Fully compliant with treatment and antibiotics. Still on isolation due to Clostridium diff easily infection. On interview the patient reports mild improvement since yesterday. Mental Status Exam Mental Status Exam Patient Appearance: Appropriate Patient Orientation: Person and Situation Level of Consciousness: Awake and Appropriate Patient Behavior: Guarded and Passive Mood Description: Withdrawn Affect Description: Constricted Ability to Follow Directions: Good Speech Pattern: Clear Hallucinations: None Delusions: Not Present Thought Process: Distracted and Slowed Thinking Thought Content: positive for [place], positive for Circumstantial and positive for Poverty of Content Judgement: Fair Diagnostics Vital Signs (24Hr): Vital Signs - 24 hr 01/11/23 08:23 01/11/23 18:00 Temperature 96.7 F L 96.4 F L Pulse Rate 77 72 Respiratory Rate 16 16 Blood Pressure 129/69 102/63 Pulse Oximetry 95 97 Oxygen Delivery Method Room Air Room Air BMI result Body Mass Index 29.3 Labs 01/07/23 09:08 01/08/23 13:52 Imaging Radiology Impressions: ITS Impressions Abdomen Ultrasound 01/07/23 08:45 IMPRESSION: Mild bilateral hydronephrosis. Left kidney not well visualized. Medications Medications Current Medications Acetaminophen (Acetaminophen 325 Mg Tablet) 650 mg PO Q6H PRN PRN Reason: Headache/Pain Mild Scale (1-3) Last Admin: 01/09/23 21:30 Dose: 650 mg Al Hydroxide/Mg Hydroxide (Magnesium Hydrox/Alum Hydrox 30 Ml Oral.Susp) 30 ml PO Q6H PRN PRN Reason: Heartburn/Nausea Last Admin: 01/05/23 19:58 Dose: 30 ml Escitalopram Oxalate (Escitalopram Oxalate 10 Mg Tablet) 10 mg PO DAILY [facility] Last Admin: 01/11/23 08:23 Dose: 10 mg Famotidine (Famotidine 20 Mg Tablet) 20 mg PO BID [facility] Last Admin: 01/11/23 21:03 Dose: 20 mg Fidaxomicin (Fidaxomicin 200 Mg Tablet) 200 mg PO BID [facility] Last Admin: 01/11/23 21:02 Dose: 200 mg Hydroxyzine HCl (Hydroxyzine Hcl 25 Mg Tablet) 25 mg PO Q6H PRN PRN Reason: Anxiety Loperamide HCl (Loperamide Hcl 2 Mg Capsule) 4 mg PO Q6H PRN PRN Reason: Diarrhea Last Admin: 01/06/23 18:03 Dose: 4 mg Magnesium Hydroxide (Milk Of Magnesia 30 Ml Oral.Susp) 30 ml PO DAILY PRN PRN Reason: Constipation Mirtazapine (Mirtazapine 7.5 Mg Tablet) 7.5 mg PO BEDTIME [facility] Last Admin: 01/11/23 21:02 Dose: 7.5 mg Olanzapine (Olanzapine 5 Mg Tablet) 5 mg PO BEDTIME [facility] Last Admin: 01/11/23 21:02 Dose: 5 mg Omeprazole (Omeprazole 20 Mg Capsule.Dr) 20 mg PO DAILY@0630 [facility] Last Admin: 01/12/23 06:23 Dose: 20 mg Ondansetron HCl (Ondansetron Odt 4 Mg Tab.Rapdis) 4 mg TRANSLINGU Q8H PRN PRN Reason: Nausea Simethicone (Simethicone 80 Mg Tab.Chew) 80 mg PO QIDWMHS PRN PRN Reason: epigastric discomfort/bloating Last Admin: 01/01/23 08:01 Dose: 80 mg Trazodone HCl (Trazodone Hcl 50 Mg Tablet) 50 mg PO BEDTIME MRX1 PRN PRN Reason: Insomnia Last Admin: 01/11/23 21:02 Dose: 50 mg Allergies Allergies Allergy/AdvReac Type Severity Reaction Status Date / Time Unable to Assess Allergy Verified 12/28/22 18:48 Assessment & Plan Assessment & Plan (1) Upper abdominal pain: Status: Acute Code(s): R10.10 - Upper abdominal pain, unspecified (2) Mood disorder: Status: Acute Code(s): F39 - Unspecified mood [affective] disorder (3) Delirium: Status: Acute Code(s): R41.0 - Disorientation, unspecified Plan 72 YF with hx of GERD and thymoma admitted to [facility] on 12/29/22 for increasing depression and passive wishes. GI consulted for evaluaton of GERD and chronic epigastric pain. Plan 1. Continue with antidepressants. 2. Reassessment with results 3.TW consult with pharmacy 4. start fidaxomicin 200mg q 12 x 10 days 4. infectious disease consult Reason for continued inpatient stay Substantial Risk for: inability to function, rapid decompensation and med/psych decompensation Time Spent With Patient Time: Total time managing care of this patient today __20__ minutes.
[2023-01-12 08:30] VITALS: BP 114/58; PULSE 84; RESP 16; TEMP 36.9; O2SAT 94
[2023-01-12] MEDS: Famotidine 20 MG TABLET PO ×2 (08:46→20:33)
[2023-01-12] MEDS: Fidaxomicin 200 MG TABLET PO ×2 (08:46→20:33)
[2023-01-12] MEDS: Escitalopram Oxalate 10 MG TABLET PO (08:46)
[2023-01-12 18:00] VITALS: BP 121/63; PULSE 77; RESP 18; TEMP 36.6; O2SAT 96
[2023-01-12] MEDS: OLANZapine 5 MG TABLET PO (20:33)
[2023-01-12] MEDS: Mirtazapine 7.5 MG TABLET PO (20:33)
[2023-01-13] MEDS: Omeprazole 20 MG CAPSULE.DR PO (06:41)
[2023-01-13 09:15] VITALS: BP 112/60; PULSE 73; RESP 16; TEMP 36.1; O2SAT 95
[2023-01-13 09:45] VITALS: BMI 28.1
[2023-01-13] MEDS: Escitalopram Oxalate 10 MG TABLET PO (09:46)
[2023-01-13] MEDS: Fidaxomicin 200 MG TABLET PO ×2 (09:46→20:41)
[2023-01-13] MEDS: Famotidine 20 MG TABLET PO ×2 (09:46→20:42)
--- NOTE | 2023-01-13 11:44 | HO.PSYCHPN ---
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 she still has loose stools. She feels anxious 5/10 and depressed for over 10 due to her medical problems. She slept well last night. On interview I explained her that she is going to get better with antibiotics but we need to wait a little more and she has a full resolution of her symptoms. The patient was able to understand the treatment plan. Mental Status Exam Mental Status Exam Patient Appearance: Appropriate Patient Orientation: Person and Situation Level of Consciousness: Awake and Appropriate Patient Behavior: Guarded and Passive Mood Description: Withdrawn Affect Description: Constricted Patient Cognition Impaired: Yes Ability to Follow Directions: Good Speech Pattern: Clear Hallucinations: None Delusions: Not Present Thought Process: Distracted and Slowed Thinking Thought Content: positive for [place] and positive for Poverty of Content Judgement: Fair Diagnostics Vital Signs (24Hr): Vital Signs - 24 hr 01/12/23 18:00 01/13/23 09:15 Temperature 97.8 F 96.9 F Pulse Rate 77 73 Respiratory Rate 18 16 Blood Pressure 121/63 112/60 Pulse Oximetry 96 95 Oxygen Delivery Method Room Air Room Air BMI result Body Mass Index 28.1 Labs 01/07/23 09:08 01/08/23 13:52 Imaging Radiology Impressions: ITS Impressions Abdomen Ultrasound 01/07/23 08:45 IMPRESSION: Mild bilateral hydronephrosis. Left kidney not well visualized. Medications Medications Current Medications Acetaminophen (Acetaminophen 325 Mg Tablet) 650 mg PO Q6H PRN PRN Reason: Headache/Pain Mild Scale (1-3) Last Admin: 01/09/23 21:30 Dose: 650 mg Al Hydroxide/Mg Hydroxide (Magnesium Hydrox/Alum Hydrox 30 Ml Oral.Susp) 30 ml PO Q6H PRN PRN Reason: Heartburn/Nausea Last Admin: 01/05/23 19:58 Dose: 30 ml Escitalopram Oxalate (Escitalopram Oxalate 10 Mg Tablet) 10 mg PO DAILY [facility] Last Admin: 01/13/23 09:46 Dose: 10 mg Famotidine (Famotidine 20 Mg Tablet) 20 mg PO BID [facility] Last Admin: 01/13/23 09:46 Dose: 20 mg Fidaxomicin (Fidaxomicin 200 Mg Tablet) 200 mg PO BID [facility] Last Admin: 01/13/23 09:46 Dose: 200 mg Hydroxyzine HCl (Hydroxyzine Hcl 25 Mg Tablet) 25 mg PO Q6H PRN PRN Reason: Anxiety Loperamide HCl (Loperamide Hcl 2 Mg Capsule) 4 mg PO Q6H PRN PRN Reason: Diarrhea Last Admin: 01/06/23 18:03 Dose: 4 mg Magnesium Hydroxide (Milk Of Magnesia 30 Ml Oral.Susp) 30 ml PO DAILY PRN PRN Reason: Constipation Mirtazapine (Mirtazapine 7.5 Mg Tablet) 7.5 mg PO BEDTIME [facility] Last Admin: 01/12/23 20:33 Dose: 7.5 mg Olanzapine (Olanzapine 5 Mg Tablet) 5 mg PO BEDTIME [facility] Last Admin: 01/12/23 20:33 Dose: 5 mg Omeprazole (Omeprazole 20 Mg Capsule.Dr) 20 mg PO DAILY@0630 [facility] Last Admin: 01/13/23 06:41 Dose: 20 mg Ondansetron HCl (Ondansetron Odt 4 Mg Tab.Rapdis) 4 mg TRANSLINGU Q8H PRN PRN Reason: Nausea Simethicone (Simethicone 80 Mg Tab.Chew) 80 mg PO QIDWMHS PRN PRN Reason: epigastric discomfort/bloating Last Admin: 01/01/23 08:01 Dose: 80 mg Trazodone HCl (Trazodone Hcl 50 Mg Tablet) 50 mg PO BEDTIME MRX1 PRN PRN Reason: Insomnia Last Admin: 01/11/23 21:02 Dose: 50 mg Allergies Allergies Allergy/AdvReac Type Severity Reaction Status Date / Time Unable to Assess Allergy Verified 12/28/22 18:48 Assessment & Plan Assessment & Plan (1) Upper abdominal pain: Status: Acute Code(s): R10.10 - Upper abdominal pain, unspecified (2) Mood disorder: Status: Acute Code(s): F39 - Unspecified mood [affective] disorder (3) Delirium: Status: Acute Code(s): R41.0 - Disorientation, unspecified Plan 72 YF with hx of GERD and thymoma admitted to [facility] on 12/29/22 for increasing depression and passive wishes. GI consulted for evaluaton of GERD and chronic epigastric pain. Plan 1. Continue with antidepressants. 2. Reassessment with results 3.TW consult with pharmacy 4. start fidaxomicin 200mg q 12 x 10 days 4. infectious disease consult on treatment for Clostridium diff Reason for continued inpatient stay Substantial Risk for: inability to function, rapid decompensation and med/psych decompensation Time Spent With Patient Time: Total time managing care of this patient today __20__ minutes.
[2023-01-13 18:00] VITALS: BP 140/63; PULSE 60; RESP 18; TEMP 36.1; O2SAT 95
[2023-01-13] MEDS: traZODone HCL 50 MG TABLET PO (20:40)
[2023-01-13] MEDS: OLANZapine 5 MG TABLET PO (20:41)
[2023-01-13] MEDS: Mirtazapine 7.5 MG TABLET PO (20:41)
[2023-01-14 03:50] VITALS: BP 137/63; PULSE 72; RESP 16; TEMP 36.6; O2SAT 96
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
[2023-01-14] MEDS: Omeprazole 20 MG CAPSULE.DR PO (06:22)
[2023-01-14 08:41] VITALS: BP 134/82; PULSE 67; RESP 14; TEMP 36.6; O2SAT 96
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
[2023-01-14] MEDS: Famotidine 20 MG TABLET PO ×2 (09:39→20:34)
[2023-01-14] MEDS: Escitalopram Oxalate 10 MG TABLET PO (09:39)
[2023-01-14] MEDS: Fidaxomicin 200 MG TABLET PO ×2 (09:39→20:34)
[2023-01-14 18:00] VITALS: BP 132/66; PULSE 61; TEMP 36.4; O2SAT 96
[2023-01-14] MEDS: traZODone HCL 50 MG TABLET PO (20:34)
[2023-01-14] MEDS: Mirtazapine 7.5 MG TABLET PO (20:34)
[2023-01-14] MEDS: OLANZapine 5 MG TABLET PO (20:34)
[2023-01-15] MEDS: Omeprazole 20 MG CAPSULE.DR PO (06:24)
[2023-01-15] MEDS: Fidaxomicin 200 MG TABLET PO ×2 (08:19→20:38)
[2023-01-15] MEDS: Escitalopram Oxalate 10 MG TABLET PO (08:19)
[2023-01-15] MEDS: Famotidine 20 MG TABLET PO ×2 (08:19→20:38)
[2023-01-15 08:39] VITALS: BP 115/56; PULSE 69; RESP 16; TEMP 36.5; O2SAT 94
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
[2023-01-15 18:00] VITALS: BP 135/90; PULSE 60; RESP 17; TEMP 36.3; O2SAT 94
[2023-01-15] MEDS: OLANZapine 5 MG TABLET PO (20:38)
[2023-01-15] MEDS: traZODone HCL 50 MG TABLET PO (20:38)
[2023-01-15] MEDS: Mirtazapine 7.5 MG TABLET PO (20:38)
[2023-01-16] MEDS: Omeprazole 20 MG CAPSULE.DR PO (06:31)
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
[2023-01-16 08:35] VITALS: BP 117/67; PULSE 68; RESP 16; TEMP 36.4; O2SAT 94
[2023-01-16] MEDS: Famotidine 20 MG TABLET PO ×2 (08:41→20:21)
[2023-01-16] MEDS: Escitalopram Oxalate 10 MG TABLET PO (08:41)
[2023-01-16] MEDS: Fidaxomicin 200 MG TABLET PO ×2 (08:41→20:21)
[2023-01-16 18:00] VITALS: BP 104/60; PULSE 63; RESP 16; TEMP 36.3; O2SAT 93
[2023-01-16] MEDS: traZODone HCL 50 MG TABLET PO (20:22)
[2023-01-16] MEDS: OLANZapine 5 MG TABLET PO (20:22)
[2023-01-16] MEDS: Mirtazapine 7.5 MG TABLET PO (20:22)
[2023-01-17] MEDS: Omeprazole 20 MG CAPSULE.DR PO (06:20)
[2023-01-17] MEDS: Fidaxomicin 200 MG TABLET PO (08:18)
[2023-01-17] MEDS: Famotidine 20 MG TABLET PO ×2 (08:18→21:31)
[2023-01-17] MEDS: Escitalopram Oxalate 10 MG TABLET PO (08:18)
[2023-01-17 08:35] VITALS: BP 114/59; PULSE 71; RESP 18; TEMP 36.2; O2SAT 94
--- NOTE | 2023-01-17 10:02 | HO.PSYCHPN ---
Subjective Subjective Date of Service: 01/17/23 Reason For Visit: Major Depressive D/O Recurrent Severe W/O Psyh Subjective Notes: Conditional Voluntary Interim History: The nursing staff reported the patient is alert oriented x4 pleasant, she denies suicidal or homicidal ideation and she reports that her depression 5/10. The staff reported that she still having loose stools. On interview the patient denies new symptoms still with diarrhea. We will call the hospitalist to discussed the treatment options since she is on antibiotics. Mental Status Exam Mental Status Exam Patient Appearance: Appropriate Patient Orientation: Person and Situation Level of Consciousness: Awake and Appropriate Patient Behavior: Guarded and Passive Mood Description: Withdrawn Affect Description: Constricted Patient Cognition Impaired: Yes Ability to Follow Directions: Good Speech Pattern: Clear Hallucinations: None Delusions: Not Present Thought Process: Linear Thought Content: positive for [place] and positive for Circumstantial Judgement: Fair Diagnostics Vital Signs (24Hr): Vital Signs - 24 hr 01/16/23 18:00 01/17/23 08:35 Temperature 97.3 F 97.1 F Pulse Rate 63 71 Respiratory Rate 16 18 Blood Pressure 104/60 114/59 L Pulse Oximetry 93 94 Oxygen Delivery Method Room Air Room Air BMI result Body Mass Index 28.1 Labs 01/07/23 09:08 01/08/23 13:52 Imaging Radiology Impressions: ITS Impressions Abdomen Ultrasound 01/07/23 08:45 IMPRESSION: Mild bilateral hydronephrosis. Left kidney not well visualized. Medications Medications Current Medications Acetaminophen (Acetaminophen 325 Mg Tablet) 650 mg PO Q6H PRN PRN Reason: Headache/Pain Mild Scale (1-3) Last Admin: 01/09/23 21:30 Dose: 650 mg Al Hydroxide/Mg Hydroxide (Magnesium Hydrox/Alum Hydrox 30 Ml Oral.Susp) 30 ml PO Q6H PRN PRN Reason: Heartburn/Nausea Last Admin: 01/05/23 19:58 Dose: 30 ml Escitalopram Oxalate (Escitalopram Oxalate 10 Mg Tablet) 10 mg PO DAILY [facility] Last Admin: 01/17/23 08:18 Dose: 10 mg Famotidine (Famotidine 20 Mg Tablet) 20 mg PO BID [facility] Last Admin: 01/17/23 08:18 Dose: 20 mg Fidaxomicin (Fidaxomicin 200 Mg Tablet) 200 mg PO BID [facility] Last Admin: 01/17/23 08:18 Dose: 200 mg Hydroxyzine HCl (Hydroxyzine Hcl 25 Mg Tablet) 25 mg PO Q6H PRN PRN Reason: Anxiety Loperamide HCl (Loperamide Hcl 2 Mg Capsule) 4 mg PO Q6H PRN PRN Reason: Diarrhea Last Admin: 01/06/23 18:03 Dose: 4 mg Magnesium Hydroxide (Milk Of Magnesia 30 Ml Oral.Susp) 30 ml PO DAILY PRN PRN Reason: Constipation Mirtazapine (Mirtazapine 7.5 Mg Tablet) 7.5 mg PO BEDTIME [facility] Last Admin: 01/16/23 20:22 Dose: 7.5 mg Olanzapine (Olanzapine 5 Mg Tablet) 5 mg PO BEDTIME [facility] Last Admin: 01/16/23 20:22 Dose: 5 mg Omeprazole (Omeprazole 20 Mg Capsule.Dr) 20 mg PO DAILY@0630 [facility] Last Admin: 01/17/23 06:20 Dose: 20 mg Ondansetron HCl (Ondansetron Odt 4 Mg Tab.Rapdis) 4 mg TRANSLINGU Q8H PRN PRN Reason: Nausea Simethicone (Simethicone 80 Mg Tab.Chew) 80 mg PO QIDWMHS PRN PRN Reason: epigastric discomfort/bloating Last Admin: 01/01/23 08:01 Dose: 80 mg Trazodone HCl (Trazodone Hcl 50 Mg Tablet) 50 mg PO BEDTIME MRX1 PRN PRN Reason: Insomnia Last Admin: 01/16/23 20:22 Dose: 50 mg Allergies Allergies Allergy/AdvReac Type Severity Reaction Status Date / Time Unable to Assess Allergy Verified 12/28/22 18:48 Assessment & Plan Assessment & Plan (1) Upper abdominal pain: Status: Acute Code(s): R10.10 - Upper abdominal pain, unspecified (2) Mood disorder: Status: Acute Code(s): F39 - Unspecified mood [affective] disorder (3) Delirium: Status: Acute Code(s): R41.0 - Disorientation, unspecified Plan Pt is a 72-year-old female with a PMH significant for?GERD and thymoma who is admitted to [facility] for increasing depression and passive wishes. Patient was originally admitted on 12/02/2022 to [facility] after being found lying on the side of the road and reported to the police that she was [place] [address] Patient was altered at the time and could provide no reason for why she was walking to the highway. Patient was initially admitted to the medical service for treatment of AMS, hypocalcemia, hypokalemia. Medical consult for admission H&P. Mood disorder Plan 1. Continue with antidepressants as prescribed. 2. Continue with antibiotics for Clostridium difficile infection. 3. Consult to hospitalist since she had been on antibiotics for 1 week and still with diarrhea. 4. Continue contact isolation. Reason for continued inpatient stay Substantial Risk for: inability to function, rapid decompensation and med/psych decompensation Time Spent With Patient Time: Total time managing care of this patient today __20__ minutes.
--- NOTE | 2023-01-17 13:38 | PM.EVENT ---
Event Note Date of Service: 01/17/23 Event Note: 72-year-old female admitted to Psychiatry a consult placed hospitalist service for management of C diff. 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 The patient completed course of p.o. vancomycin during hospitalization prior to transfer to our geriatric unit. Initially had significant leukocytosis 19.2, improved to 5.[address] abdomen/pelvis while at [facility] showed pancolitis. The patient reported that she had never fully felt better and was experiencing significant anorexia and epigastric abdominal pain. Given recurrence of significant diarrhea, C diff PCR was again tested and was positive. She is currently on fidaxomicin 200 mg twice daily intiated (01/08, has received 8 doses) and has been compliant with treatment. The patient is still reporting 1-2 episodes of watery, nonbloody diarrhea with 6/10 diffuse abd pain. No n/v, fevers, anorexia. Abd exam reveals mild diffuse abd ttp without any guarding or rebound, +BS. Unfortunately no recent labs available for review. Plan: Will check CBC, BMP Will consult ID for further recommendations given recurrent CDiff and ongoing symptoms despite near completion of treatment. Continue fidaxomicin for the time being Time Spent With Patient Time: Total time managing care of this patient today ____ minutes.
[2023-01-17 14:44] LABS: MANUAL DIFF FLAG NO
[2023-01-17 14:48] LABS: Basophils Percent Auto 0.5 % (0-2); Eosinophils Absolute Auto 0.3 X10*3/uL (0.0-0.4); Eosinophils Percent Auto 3.4 % (0-4); Hematocrit 41.1 % (37.0-47.0); Hemoglobin 13.3 g/dl (12.0-16.0); Imm Gran Abs Auto 0.08 X10*3/uL (0.00-0.03); Lymphocytes Absolute Auto 1.8 X10*3/uL (1.2-4.9); Lymphocytes Percent Auto 23.1 % (20-40); Mean Corpuscular HGB Conc 32.4 g/dl (31.0-35.0); Mean Corpuscular Hemoglobin 30.2 pg (27.0-33.0); Mean Corpuscular Volume 93.2 fL (80.0-98.0); Mean Platelet Volume 11.3 fL (9.4-12.3); Monocytes Absolute Auto 0.5 X10*3/uL (0.1-1.2); Monocytes Percent Auto 6.4 % (2-11); Neutrophils Percent Auto 65.6 % (45-73); Platelet Count 258 X10*3/uL (160-400); Red Blood Count 4.41 X10*6/uL (4.20-5.50); Red Cell Distribution Width 16.2 % (11.0-16.0); White Blood Count 7.6 X10*3/uL (4.8-10.8)
[2023-01-17 14:58] LABS: Anion Gap 10 (12-20); Blood Urea Nitrogen 13 mg/dL (9-16); Calcium 8.2 mg/dL (8.4-10.2); Carbon Dioxide 21 mmol/L (22-29); Chloride 114 mmol/L (96-108); Creatinine Clr Calc Pharmacy 55.4; Estimated Glomerular Filt Rate > 60; Glucose Random 119 mg/dL (60-115); Potassium 3.2 mmol/L (3.3-5.1); Sodium 142 mmol/L (135-145)
[2023-01-17 17:58] VITALS: BP 127/60; PULSE 67; RESP 16; O2SAT 97
[2023-01-17] MEDS: vancomycin HCL 125 MG CAPSULE PO ×2 (18:40→21:31)
[2023-01-17] MEDS: traZODone HCL 50 MG TABLET PO (21:30)
[2023-01-17] MEDS: Mirtazapine 7.5 MG TABLET PO (21:30)
[2023-01-17] MEDS: OLANZapine 5 MG TABLET PO (21:31)
[2023-01-18 06:00] VITALS: BP 130/63; PULSE 70; RESP 18; TEMP 36.1; O2SAT 96
[2023-01-18] MEDS: Omeprazole 20 MG CAPSULE.DR PO (06:27)
[2023-01-18] MEDS: vancomycin HCL 125 MG CAPSULE PO ×5 (09:22→20:32)
[2023-01-18] MEDS: Famotidine 20 MG TABLET PO ×2 (09:22→20:33)
[2023-01-18] MEDS: Escitalopram Oxalate 10 MG TABLET PO (09:22)
--- NOTE | 2023-01-18 11:08 | HO.PSYCHPN ---
Subjective Subjective Date of Service: 01/18/23 Reason For Visit: Major Depressive D/O Recurrent Severe W/O Psyh Subjective Notes: Conditional Voluntary Interim History: The nursing staff reported that she did have loose stools in the last 24 hours. Yesterday I consulted the hospitalist and Infectious Disease are involved. On interview the patient denies new symptoms she states that she has a little bored to be in isolation in her room. No side effects with the current medication. Mental Status Exam Mental Status Exam Patient Appearance: Appropriate Patient Orientation: Person and Situation Level of Consciousness: Awake and Appropriate Patient Behavior: Guarded and Passive Mood Description: Withdrawn Affect Description: Constricted Patient Cognition Impaired: Yes Ability to Follow Directions: Good Speech Pattern: Clear Hallucinations: None Delusions: Not Present Thought Process: Linear Thought Content: positive for [place] and positive for Circumstantial Judgement: Fair Diagnostics Vital Signs (24Hr): Vital Signs - 24 hr 01/17/23 17:58 01/18/23 06:00 Temperature 97 F Pulse Rate 67 70 Respiratory Rate 16 18 Blood Pressure 127/60 130/63 Pulse Oximetry 97 96 Oxygen Delivery Method Room Air Room Air BMI result Body Mass Index 28.1 Labs 01/17/23 14:08 01/17/23 14:08 Labs: Laboratory Results - last 48 hr 01/17/23 14:08 WBC 7.6 RBC 4.41 Hgb 13.3 Hct 41.1 MCV 93.2 MCH 30.2 MCHC 32.4 RDW 16.2 H Plt Count 258 MPV 11.3 Immature Gran % (Auto) 1.0 H Neut % (Auto) 65.6 Lymph % (Auto) 23.1 [place] % (Auto) 6.4 Eos % (Auto) 3.4 Baso % (Auto) 0.5 Lymph # (Auto) 1.8 [place] # (Auto) 0.5 Eos # (Auto) 0.3 Baso # (Auto) 0.0 Abs Immat Gran (auto) 0.08 H Absolute Neuts (auto) 5.0 Absolute Nucleated RBC 0.000 Nucleated RBC % (auto) 0.0 Sodium 142 Potassium 3.2 L Chloride 114 H Carbon Dioxide 21 L Anion Gap 10 L BUN 13 Creatinine 0.75 Estim Creat Clear Calc 55.4 Estimated GFR > 60 Random Glucose 119 H Calcium 8.2 L D Imaging Radiology Impressions: ITS Impressions Abdomen Ultrasound 01/07/23 08:45 IMPRESSION: Mild bilateral hydronephrosis. Left kidney not well visualized. Medications Medications Current Medications Acetaminophen (Acetaminophen 325 Mg Tablet) 650 mg PO Q6H PRN PRN Reason: Headache/Pain Mild Scale (1-3) Last Admin: 01/09/23 21:30 Dose: 650 mg Al Hydroxide/Mg Hydroxide (Magnesium Hydrox/Alum Hydrox 30 Ml Oral.Susp) 30 ml PO Q6H PRN PRN Reason: Heartburn/Nausea Last Admin: 01/05/23 19:58 Dose: 30 ml Escitalopram Oxalate (Escitalopram Oxalate 10 Mg Tablet) 10 mg PO DAILY [facility] Last Admin: 01/18/23 09:22 Dose: 10 mg Famotidine (Famotidine 20 Mg Tablet) 20 mg PO BID [facility] Last Admin: 01/18/23 09:22 Dose: 20 mg Hydroxyzine HCl (Hydroxyzine Hcl 25 Mg Tablet) 25 mg PO Q6H PRN PRN Reason: Anxiety Loperamide HCl (Loperamide Hcl 2 Mg Capsule) 4 mg PO Q6H PRN PRN Reason: Diarrhea Last Admin: 01/06/23 18:03 Dose: 4 mg Magnesium Hydroxide (Milk Of Magnesia 30 Ml Oral.Susp) 30 ml PO DAILY PRN PRN Reason: Constipation Mirtazapine (Mirtazapine 7.5 Mg Tablet) 7.5 mg PO BEDTIME [facility] Last Admin: 01/17/23 21:30 Dose: 7.5 mg Olanzapine (Olanzapine 5 Mg Tablet) 5 mg PO BEDTIME [facility] Last Admin: 01/17/23 21:31 Dose: 5 mg Omeprazole (Omeprazole 20 Mg Capsule.Dr) 20 mg PO DAILY@0630 [facility] Last Admin: 01/18/23 06:27 Dose: 20 mg Ondansetron HCl (Ondansetron Odt 4 Mg Tab.Rapdis) 4 mg TRANSLINGU Q8H PRN PRN Reason: Nausea Simethicone (Simethicone 80 Mg Tab.Chew) 80 mg PO QIDWMHS PRN PRN Reason: epigastric discomfort/bloating Last Admin: 01/01/23 08:01 Dose: 80 mg Trazodone HCl (Trazodone Hcl 50 Mg Tablet) 50 mg PO BEDTIME MRX1 PRN PRN Reason: Insomnia Last Admin: 01/17/23 21:30 Dose: 50 mg Vancomycin HCl (Vancomycin Hcl 125 Mg Capsule) 125 mg PO QID [facility] Stop: 01/27/23 13:01 Last Admin: 01/18/23 09:22 Dose: 125 mg Vancomycin HCl (Vancomycin Hcl 125 Mg Capsule) 125 mg PO TID [facility] Stop: 02/03/23 15:01 Vancomycin HCl (Vancomycin Hcl 125 Mg Capsule) 125 mg PO BID [facility] Stop: 02/10/23 09:01 Vancomycin HCl (Vancomycin Hcl 125 Mg Capsule) 125 mg PO DAILY [facility] Allergies Allergies Allergy/AdvReac Type Severity Reaction Status Date / Time Unable to Assess Allergy Verified 12/28/22 18:48 Assessment & Plan Assessment & Plan (1) Upper abdominal pain: Status: Acute Code(s): R10.10 - Upper abdominal pain, unspecified (2) Mood disorder: Status: Acute Code(s): F39 - Unspecified mood [affective] disorder (3) Delirium: Status: Acute Code(s): R41.0 - Disorientation, unspecified Plan Pt is a 72-year-old female with a PMH significant for?GERD and thymoma who is admitted to [facility] for increasing depression and passive wishes. Patient was originally admitted on 12/02/2022 to [facility] after being found lying on the side of the road and reported to the police that she was [place] [address] Patient was altered at the time and could provide no reason for why she was walking to the highway. Patient was initially admitted to the medical service for treatment of AMS, hypocalcemia, hypokalemia. Medical consult for admission H&P. Mood disorder Plan 1. Continue with antidepressants as prescribed. 2. Continue with antibiotics for Clostridium difficile infection. 3. Consult to hospitalist since she had been on antibiotics for 1 week and still with diarrhea. Infectious Disease is involved now and yesterday, January 17 we are changing antibiotics and she will be discharged with vancomycin p.o.. 4. Continue contact isolation as per protocol. Reason for continued inpatient stay Substantial Risk for: inability to function, rapid decompensation and med/psych decompensation Time Spent With Patient Time: Total time managing care of this patient today _20___ minutes.
[2023-01-18 18:00] VITALS: BP 143/75; PULSE 74; RESP 18; TEMP 36.4; O2SAT 94
[2023-01-18] MEDS: OLANZapine 5 MG TABLET PO (20:32)
[2023-01-18] MEDS: Mirtazapine 7.5 MG TABLET PO (20:33)
[2023-01-18] MEDS: traZODone HCL 50 MG TABLET PO (20:33)
[2023-01-19] MEDS: Omeprazole 20 MG CAPSULE.DR PO (05:48)
[2023-01-19 08:09] VITALS: BP 136/38; PULSE 68; RESP 16; TEMP 37; O2SAT 96
[2023-01-19] MEDS: Famotidine 20 MG TABLET PO ×2 (08:10→20:38)
[2023-01-19] MEDS: vancomycin HCL 125 MG CAPSULE PO ×4 (08:10→20:38)
[2023-01-19] MEDS: Escitalopram Oxalate 10 MG TABLET PO (08:10)
--- NOTE | 2023-01-19 17:20 | HO.PSYCHPN ---
Subjective Subjective Date of Service: 01/19/23 Reason For Visit: Major Depressive D/O Recurrent Severe W/O Psyh Subjective Notes: Conditional Voluntary Interim History: Pt reports feeling better. She denies SI/HI. She reports feeling tired of being in the room due to isolation s/s to c.dif. Pt states she would like to be discharged soon. No behavioral concerns. sleeping through the night. Medication Compliance: Yes Review of Systems Review of Systems Epigastric pain with diarrhea Patient has no other acute medical concerns at this time Yes Unobtainable due to mental status Mental Status Exam Mental Status Exam Patient Appearance: Appropriate Patient Orientation: Person and Situation Level of Consciousness: Awake and Appropriate Patient Behavior: Guarded and Passive Mood Description: Withdrawn Affect Description: Constricted Patient Cognition Impaired: Yes Ability to Follow Directions: Good Speech Pattern: Clear Diagnostics Vital Signs (24Hr): Vital Signs - 24 hr 01/18/23 18:00 01/19/23 08:09 Temperature 97.5 F 98.6 F Pulse Rate 74 68 Respiratory Rate 18 16 Blood Pressure 143/75 H 136/38 L Pulse Oximetry 94 96 Oxygen Delivery Method Room Air Room Air BMI result Body Mass Index 28.1 Labs 01/17/23 14:08 01/17/23 14:08 Imaging Radiology Impressions: ITS Impressions Abdomen Ultrasound 01/07/23 08:45 IMPRESSION: Mild bilateral hydronephrosis. Left kidney not well visualized. Medications Medications Current Medications Acetaminophen (Acetaminophen 325 Mg Tablet) 650 mg PO Q6H PRN PRN Reason: Headache/Pain Mild Scale (1-3) Last Admin: 01/09/23 21:30 Dose: 650 mg Al Hydroxide/Mg Hydroxide (Magnesium Hydrox/Alum Hydrox 30 Ml Oral.Susp) 30 ml PO Q6H PRN PRN Reason: Heartburn/Nausea Last Admin: 01/05/23 19:58 Dose: 30 ml Escitalopram Oxalate (Escitalopram Oxalate 10 Mg Tablet) 10 mg PO DAILY [facility] Last Admin: 01/19/23 08:10 Dose: 10 mg Famotidine (Famotidine 20 Mg Tablet) 20 mg PO BID [facility] Last Admin: 01/19/23 08:10 Dose: 20 mg Hydroxyzine HCl (Hydroxyzine Hcl 25 Mg Tablet) 25 mg PO Q6H PRN PRN Reason: Anxiety Loperamide HCl (Loperamide Hcl 2 Mg Capsule) 4 mg PO Q6H PRN PRN Reason: Diarrhea Last Admin: 01/06/23 18:03 Dose: 4 mg Magnesium Hydroxide (Milk Of Magnesia 30 Ml Oral.Susp) 30 ml PO DAILY PRN PRN Reason: Constipation Mirtazapine (Mirtazapine 7.5 Mg Tablet) 7.5 mg PO BEDTIME [facility] Last Admin: 01/18/23 20:33 Dose: 7.5 mg Olanzapine (Olanzapine 5 Mg Tablet) 5 mg PO BEDTIME [facility] Last Admin: 01/18/23 20:32 Dose: 5 mg Omeprazole (Omeprazole 20 Mg Capsule.Dr) 20 mg PO DAILY@0630 [facility] Last Admin: 01/19/23 05:48 Dose: 20 mg Ondansetron HCl (Ondansetron Odt 4 Mg Tab.Rapdis) 4 mg TRANSLINGU Q8H PRN PRN Reason: Nausea Simethicone (Simethicone 80 Mg Tab.Chew) 80 mg PO QIDWMHS PRN PRN Reason: epigastric discomfort/bloating Last Admin: 01/01/23 08:01 Dose: 80 mg Trazodone HCl (Trazodone Hcl 50 Mg Tablet) 50 mg PO BEDTIME MRX1 PRN PRN Reason: Insomnia Last Admin: 01/18/23 20:33 Dose: 50 mg Vancomycin HCl (Vancomycin Hcl 125 Mg Capsule) 125 mg PO QID [facility] Stop: 01/27/23 13:01 Last Admin: 01/19/23 16:58 Dose: 125 mg Vancomycin HCl (Vancomycin Hcl 125 Mg Capsule) 125 mg PO TID [facility] Stop: 02/03/23 15:01 Last Admin: 01/18/23 20:32 Dose: 125 mg Vancomycin HCl (Vancomycin Hcl 125 Mg Capsule) 125 mg PO BID [facility] Stop: 02/10/23 09:01 Vancomycin HCl (Vancomycin Hcl 125 Mg Capsule) 125 mg PO DAILY [facility] Allergies Allergies Allergy/AdvReac Type Severity Reaction Status Date / Time Unable to Assess Allergy Verified 12/28/22 18:48 Assessment & Plan Assessment & Plan (1) MDD (major depressive disorder), recurrent episode, moderate: Status: Acute Code(s): F33.1 - Major depressive disorder, recurrent, moderate Plan Pt is a 72-year-old female with a PMH significant for?GERD and thymoma who is admitted to [facility] for increasing depression and passive wishes. Patient was originally admitted on 12/02/2022 to [facility] after being found lying on the side of the road and reported to the police that she was [place] [address] Patient was altered at the time and could provide no reason for why she was walking to the highway. Patient was initially admitted to the medical service for treatment of AMS, hypocalcemia, hypokalemia. Medical consult for admission H&P. Mood disorder Plan 1. Continue with antidepressants as prescribed. 2. Continue with antibiotics for Clostridium difficile infection. 3. Consult to hospitalist since she had been on antibiotics for 1 week and still with diarrhea. Infectious Disease is involved now and yesterday, January 17 we are changing antibiotics and she will be discharged with vancomycin p.o.. 4. Continue contact isolation as per protocol. 01/19 continue tx. Reason for continued inpatient stay Substantial Risk for: inability to function Time Spent With Patient Time: Total time managing care of this patient today ____ minutes.
[2023-01-19 18:00] VITALS: BP 134/61; PULSE 71; RESP 18; TEMP 36.8; O2SAT 93
[2023-01-19] MEDS: traZODone HCL 50 MG TABLET PO (20:38)
[2023-01-19] MEDS: OLANZapine 5 MG TABLET PO (20:38)
[2023-01-19] MEDS: Mirtazapine 7.5 MG TABLET PO (20:38)
[2023-01-20] MEDS: Omeprazole 20 MG CAPSULE.DR PO (06:12)
[2023-01-20 07:00] VITALS: BMI 30.4
[2023-01-20 08:12] VITALS: BP 135/99; PULSE 61; RESP 16; TEMP 36.2; O2SAT 95
[2023-01-20] MEDS: Famotidine 20 MG TABLET PO ×2 (08:26→20:43)
[2023-01-20] MEDS: vancomycin HCL 125 MG CAPSULE PO ×4 (08:26→20:44)
[2023-01-20] MEDS: Escitalopram Oxalate 10 MG TABLET PO (08:26)
--- NOTE | 2023-01-20 10:48 | HO.PSYCHPN ---
Subjective Subjective Date of Service: 01/20/23 Reason For Visit: Major Depressive D/O Recurrent Severe W/O Psyh Subjective Notes: Conditional Voluntary Interim History: The nursing staff reported that her mood is brighter, she denies suicidal ideation or exacerbation of dysphoria. Medically she feels much better still on contact precautions due to Clostridium diff easily. Still on antibiotics. On interview the patient denies new symptoms she reports that she is feeling slightly better and most likely will discharge her next Tuesday. Mental Status Exam Mental Status Exam Patient Appearance: Appropriate Patient Orientation: Person and Situation Level of Consciousness: Awake and Appropriate Patient Behavior: Guarded and Passive Mood Description: Withdrawn Affect Description: Constricted Patient Cognition Impaired: Yes Ability to Follow Directions: Good Speech Pattern: Clear Hallucinations: None Delusions: Not Present Thought Content: positive for [place] and positive for Circumstantial Judgement: Fair Diagnostics Vital Signs (24Hr): Vital Signs - 24 hr 01/19/23 18:00 01/20/23 08:12 Temperature 98.2 F 97.2 F Pulse Rate 71 61 Respiratory Rate 18 16 Blood Pressure 134/61 135/99 H Pulse Oximetry 93 95 Oxygen Delivery Method Room Air Room Air BMI result Body Mass Index 28.1 Labs 01/17/23 14:08 01/17/23 14:08 Imaging Radiology Impressions: ITS Impressions Abdomen Ultrasound 01/07/23 08:45 IMPRESSION: Mild bilateral hydronephrosis. Left kidney not well visualized. Medications Medications Current Medications Acetaminophen (Acetaminophen 325 Mg Tablet) 650 mg PO Q6H PRN PRN Reason: Headache/Pain Mild Scale (1-3) Last Admin: 01/09/23 21:30 Dose: 650 mg Al Hydroxide/Mg Hydroxide (Magnesium Hydrox/Alum Hydrox 30 Ml Oral.Susp) 30 ml PO Q6H PRN PRN Reason: Heartburn/Nausea Last Admin: 01/05/23 19:58 Dose: 30 ml Escitalopram Oxalate (Escitalopram Oxalate 10 Mg Tablet) 10 mg PO DAILY [facility] Last Admin: 01/20/23 08:26 Dose: 10 mg Famotidine (Famotidine 20 Mg Tablet) 20 mg PO BID [facility] Last Admin: 01/20/23 08:26 Dose: 20 mg Hydroxyzine HCl (Hydroxyzine Hcl 25 Mg Tablet) 25 mg PO Q6H PRN PRN Reason: Anxiety Loperamide HCl (Loperamide Hcl 2 Mg Capsule) 4 mg PO Q6H PRN PRN Reason: Diarrhea Last Admin: 01/06/23 18:03 Dose: 4 mg Magnesium Hydroxide (Milk Of Magnesia 30 Ml Oral.Susp) 30 ml PO DAILY PRN PRN Reason: Constipation Mirtazapine (Mirtazapine 7.5 Mg Tablet) 7.5 mg PO BEDTIME [facility] Last Admin: 01/19/23 20:38 Dose: 7.5 mg Olanzapine (Olanzapine 5 Mg Tablet) 5 mg PO BEDTIME [facility] Last Admin: 01/19/23 20:38 Dose: 5 mg Omeprazole (Omeprazole 20 Mg Capsule.Dr) 20 mg PO DAILY@0630 [facility] Last Admin: 01/20/23 06:12 Dose: 20 mg Ondansetron HCl (Ondansetron Odt 4 Mg Tab.Rapdis) 4 mg TRANSLINGU Q8H PRN PRN Reason: Nausea Simethicone (Simethicone 80 Mg Tab.Chew) 80 mg PO QIDWMHS PRN PRN Reason: epigastric discomfort/bloating Last Admin: 01/01/23 08:01 Dose: 80 mg Trazodone HCl (Trazodone Hcl 50 Mg Tablet) 50 mg PO BEDTIME MRX1 PRN PRN Reason: Insomnia Last Admin: 01/19/23 20:38 Dose: 50 mg Vancomycin HCl (Vancomycin Hcl 125 Mg Capsule) 125 mg PO QID [facility] Stop: 01/27/23 13:01 Last Admin: 01/20/23 08:26 Dose: 125 mg Vancomycin HCl (Vancomycin Hcl 125 Mg Capsule) 125 mg PO TID [facility] Stop: 02/03/23 15:01 Last Admin: 01/18/23 20:32 Dose: 125 mg Vancomycin HCl (Vancomycin Hcl 125 Mg Capsule) 125 mg PO BID [facility] Stop: 02/10/23 09:01 Vancomycin HCl (Vancomycin Hcl 125 Mg Capsule) 125 mg PO DAILY [facility] Allergies Allergies Allergy/AdvReac Type Severity Reaction Status Date / Time Unable to Assess Allergy Verified 12/28/22 18:48 Assessment & Plan Assessment & Plan (1) MDD (major depressive disorder), recurrent episode, moderate: Status: Acute Code(s): F33.1 - Major depressive disorder, recurrent, moderate Plan Pt is a 72-year-old female with a PMH significant for?GERD and thymoma who is admitted to [facility] for increasing depression and passive wishes. Patient was originally admitted on 12/02/2022 to [facility] after being found lying on the side of the road and reported to the police that she was [place] [address] Patient was altered at the time and could provide no reason for why she was walking to the highway. Patient was initially admitted to the medical service for treatment of AMS, hypocalcemia, hypokalemia. Medical consult for admission H&P. Mood disorder Plan 1. Continue with antidepressants as prescribed. 2. Continue with antibiotics for Clostridium difficile infection. 3. Consult to hospitalist since she had been on antibiotics for 1 week and still with diarrhea. Infectious Disease is involved now and yesterday, January 17 we are changing antibiotics and she will be discharged with vancomycin p.o.. 4. Continue contact isolation as per protocol. 5. Discharge for early next week. Reason for continued inpatient stay Substantial Risk for: inability to function, rapid decompensation and med/psych decompensation Time Spent With Patient Time: Total time managing care of this patient today __20__ minutes.
[2023-01-20 18:00] VITALS: BP 141/64; PULSE 69; RESP 18; TEMP 36.7; O2SAT 96
[2023-01-20] MEDS: Mirtazapine 7.5 MG TABLET PO (20:42)
[2023-01-20] MEDS: OLANZapine 5 MG TABLET PO (20:43)
[2023-01-21] MEDS: Omeprazole 20 MG CAPSULE.DR PO (06:19)
[2023-01-21 08:00] VITALS: BP 136/63; PULSE 58; RESP 18; TEMP 36.8; O2SAT 94
[2023-01-21] MEDS: vancomycin HCL 125 MG CAPSULE PO ×4 (08:25→19:52)
[2023-01-21] MEDS: Famotidine 20 MG TABLET PO ×2 (08:26→19:52)
[2023-01-21] MEDS: Escitalopram Oxalate 10 MG TABLET PO (08:26)
--- NOTE | 2023-01-21 11:02 | HO.PSYCHPN ---
Subjective Subjective Date of Service: 01/21/23 Reason For Visit: Major Depressive D/O Recurrent Severe W/O Psyh Subjective Notes: Conditional Voluntary Interim History: The nursing staff reported the patient is alert oriented x4 pleasant cooperative with a brighter affect. The staff has noticed that she does not have diarrhea at all and she slept well last night. The social service technician reported that she is doing much better on very scheduling the discharge for next week Tuesday. On interview the patient denies new symptoms she states that she is doing much better and she is eager to be discharged. She is fully aware that she had Clostridium difficile and she needs to continue treatment as an outpatient. Mental Status Exam Mental Status Exam Patient Appearance: Appropriate Patient Orientation: Person and Situation Level of Consciousness: Awake and Appropriate Patient Behavior: Guarded and Passive Mood Description: Calm Affect Description: Constricted Patient Cognition Impaired: Yes Ability to Follow Directions: Good Speech Pattern: Clear Hallucinations: None Delusions: Not Present Thought Process: Linear Thought Content: positive for Circumstantial Judgement: Fair Diagnostics Vital Signs (24Hr): Vital Signs - 24 hr 01/20/23 18:00 01/21/23 08:00 Temperature 98.0 F 98.3 F Pulse Rate 69 58 Respiratory Rate 18 18 Blood Pressure 141/64 H 136/63 Pulse Oximetry 96 94 Oxygen Delivery Method Room Air Room Air BMI result Body Mass Index 30.4 Labs 01/17/23 14:08 01/17/23 14:08 Imaging Radiology Impressions: ITS Impressions Abdomen Ultrasound 01/07/23 08:45 IMPRESSION: Mild bilateral hydronephrosis. Left kidney not well visualized. Medications Medications Current Medications Acetaminophen (Acetaminophen 325 Mg Tablet) 650 mg PO Q6H PRN PRN Reason: Headache/Pain Mild Scale (1-3) Last Admin: 01/09/23 21:30 Dose: 650 mg Al Hydroxide/Mg Hydroxide (Magnesium Hydrox/Alum Hydrox 30 Ml Oral.Susp) 30 ml PO Q6H PRN PRN Reason: Heartburn/Nausea Last Admin: 01/05/23 19:58 Dose: 30 ml Escitalopram Oxalate (Escitalopram Oxalate 10 Mg Tablet) 10 mg PO DAILY [facility] Last Admin: 01/21/23 08:26 Dose: 10 mg Famotidine (Famotidine 20 Mg Tablet) 20 mg PO BID [facility] Last Admin: 01/21/23 08:26 Dose: 20 mg Hydroxyzine HCl (Hydroxyzine Hcl 25 Mg Tablet) 25 mg PO Q6H PRN PRN Reason: Anxiety Loperamide HCl (Loperamide Hcl 2 Mg Capsule) 4 mg PO Q6H PRN PRN Reason: Diarrhea Last Admin: 01/06/23 18:03 Dose: 4 mg Magnesium Hydroxide (Milk Of Magnesia 30 Ml Oral.Susp) 30 ml PO DAILY PRN PRN Reason: Constipation Mirtazapine (Mirtazapine 7.5 Mg Tablet) 7.5 mg PO BEDTIME [facility] Last Admin: 01/20/23 20:42 Dose: 7.5 mg Olanzapine (Olanzapine 5 Mg Tablet) 5 mg PO BEDTIME [facility] Last Admin: 01/20/23 20:43 Dose: 5 mg Omeprazole (Omeprazole 20 Mg Capsule.Dr) 20 mg PO DAILY@0630 [facility] Last Admin: 01/21/23 06:19 Dose: 20 mg Ondansetron HCl (Ondansetron Odt 4 Mg Tab.Rapdis) 4 mg TRANSLINGU Q8H PRN PRN Reason: Nausea Simethicone (Simethicone 80 Mg Tab.Chew) 80 mg PO QIDWMHS PRN PRN Reason: epigastric discomfort/bloating Last Admin: 01/01/23 08:01 Dose: 80 mg Trazodone HCl (Trazodone Hcl 50 Mg Tablet) 50 mg PO BEDTIME MRX1 PRN PRN Reason: Insomnia Last Admin: 01/19/23 20:38 Dose: 50 mg Vancomycin HCl (Vancomycin Hcl 125 Mg Capsule) 125 mg PO QID [facility] Stop: 01/27/23 13:01 Last Admin: 01/21/23 08:25 Dose: 125 mg Vancomycin HCl (Vancomycin Hcl 125 Mg Capsule) 125 mg PO TID [facility] Stop: 02/03/23 15:01 Last Admin: 01/18/23 20:32 Dose: 125 mg Vancomycin HCl (Vancomycin Hcl 125 Mg Capsule) 125 mg PO BID [facility] Stop: 02/10/23 09:01 Vancomycin HCl (Vancomycin Hcl 125 Mg Capsule) 125 mg PO DAILY [facility] Allergies Allergies Allergy/AdvReac Type Severity Reaction Status Date / Time Unable to Assess Allergy Verified 12/28/22 18:48 Assessment & Plan Assessment & Plan (1) MDD (major depressive disorder), recurrent episode, moderate: Status: Acute Code(s): F33.1 - Major depressive disorder, recurrent, moderate Plan Pt is a 72-year-old female with a PMH significant for?GERD and thymoma who is admitted to [facility] for increasing depression and passive wishes. Patient was originally admitted on 12/02/2022 to [facility] after being found lying on the side of the road and reported to the police that she was [place] [address] Patient was altered at the time and could provide no reason for why she was walking to the highway. Patient was initially admitted to the medical service for treatment of AMS, hypocalcemia, hypokalemia. Medical consult for admission H&P. Mood disorder Plan 1. Continue with antidepressants as prescribed. 2. Continue with antibiotics for Clostridium difficile infection. 3. Consult to hospitalist since she had been on antibiotics for 1 week and still with diarrhea. Infectious Disease is involved now and yesterday, January 17 we are changing antibiotics and she will be discharged with vancomycin p.o.. 4. Continue contact isolation as per protocol. 5. Discharge for early next week. Reason for continued inpatient stay Substantial Risk for: inability to function, rapid decompensation and med/psych decompensation Time Spent With Patient Time: Total time managing care of this patient today __20__ minutes.
[2023-01-21 18:00] VITALS: BP 143/70; PULSE 80; RESP 18; TEMP 36.9; O2SAT 94
[2023-01-21] MEDS: Mirtazapine 7.5 MG TABLET PO (19:52)
[2023-01-21] MEDS: OLANZapine 5 MG TABLET PO (19:52)
[2023-01-21] MEDS: traZODone HCL 50 MG TABLET PO (19:56)
[2023-01-22 06:00] VITALS: BP 138/63; PULSE 67; RESP 17; TEMP 36.4; O2SAT 94
[2023-01-22] MEDS: Omeprazole 20 MG CAPSULE.DR PO (06:40)
[2023-01-22] MEDS: Famotidine 20 MG TABLET PO ×2 (08:16→20:07)
[2023-01-22] MEDS: Escitalopram Oxalate 10 MG TABLET PO (08:16)
[2023-01-22] MEDS: vancomycin HCL 125 MG CAPSULE PO ×4 (08:16→20:07)
--- NOTE | 2023-01-22 11:35 | HO.PSYCHPN ---
Subjective Subjective Date of Service: 01/22/23 Reason For Visit: Major Depressive D/O Recurrent Severe W/O Psyh Subjective Notes: Conditional Voluntary Interim History: Patient was seen and discussed in rounds today. Records and plans were reviewed. She continues to have loose stool, secondary to her C difficile which has been addressed. Eating and sleeping adequately. No complaints. No changes were made today Medication Compliance: Yes Side effects from medications: No Review of Systems Review of Systems Loose stool Yes all other systems are reviewed and are negative Mental Status Exam Mental Status Exam Narrative: In today's visit she is alert, pleasant and interactive. Normal speech. Moderate eye contact. Affect is appropriate and contained. Thought processes are coherent and linear. No dangerous behaviors. No SI. Judgment is fair. Diagnostics Vital Signs (24Hr): Vital Signs - 24 hr 01/21/23 18:00 01/22/23 06:00 Temperature 98.4 F 97.6 F Pulse Rate 80 67 Respiratory Rate 18 17 Blood Pressure 143/70 H 138/63 Pulse Oximetry 94 94 Oxygen Delivery Method Room Air Room Air BMI result Body Mass Index 30.4 Labs 01/17/23 14:08 01/17/23 14:08 Imaging Radiology Impressions: ITS Impressions Abdomen Ultrasound 01/07/23 08:45 IMPRESSION: Mild bilateral hydronephrosis. Left kidney not well visualized. Medications Medications Current Medications Acetaminophen (Acetaminophen 325 Mg Tablet) 650 mg PO Q6H PRN PRN Reason: Headache/Pain Mild Scale (1-3) Last Admin: 01/09/23 21:30 Dose: 650 mg Al Hydroxide/Mg Hydroxide (Magnesium Hydrox/Alum Hydrox 30 Ml Oral.Susp) 30 ml PO Q6H PRN PRN Reason: Heartburn/Nausea Last Admin: 01/05/23 19:58 Dose: 30 ml Escitalopram Oxalate (Escitalopram Oxalate 10 Mg Tablet) 10 mg PO DAILY [facility] Last Admin: 01/22/23 08:16 Dose: 10 mg Famotidine (Famotidine 20 Mg Tablet) 20 mg PO BID [facility] Last Admin: 01/22/23 08:16 Dose: 20 mg Hydroxyzine HCl (Hydroxyzine Hcl 25 Mg Tablet) 25 mg PO Q6H PRN PRN Reason: Anxiety Loperamide HCl (Loperamide Hcl 2 Mg Capsule) 4 mg PO Q6H PRN PRN Reason: Diarrhea Last Admin: 01/06/23 18:03 Dose: 4 mg Magnesium Hydroxide (Milk Of Magnesia 30 Ml Oral.Susp) 30 ml PO DAILY PRN PRN Reason: Constipation Mirtazapine (Mirtazapine 7.5 Mg Tablet) 7.5 mg PO BEDTIME [facility] Last Admin: 01/21/23 19:52 Dose: 7.5 mg Olanzapine (Olanzapine 5 Mg Tablet) 5 mg PO BEDTIME [facility] Last Admin: 01/21/23 19:52 Dose: 5 mg Omeprazole (Omeprazole 20 Mg Capsule.Dr) 20 mg PO DAILY@0630 [facility] Last Admin: 01/22/23 06:40 Dose: 20 mg Ondansetron HCl (Ondansetron Odt 4 Mg Tab.Rapdis) 4 mg TRANSLINGU Q8H PRN PRN Reason: Nausea Simethicone (Simethicone 80 Mg Tab.Chew) 80 mg PO QIDWMHS PRN PRN Reason: epigastric discomfort/bloating Last Admin: 01/01/23 08:01 Dose: 80 mg Trazodone HCl (Trazodone Hcl 50 Mg Tablet) 50 mg PO BEDTIME MRX1 PRN PRN Reason: Insomnia Last Admin: 01/21/23 19:56 Dose: 50 mg Vancomycin HCl (Vancomycin Hcl 125 Mg Capsule) 125 mg PO QID [facility] Stop: 01/27/23 13:01 Last Admin: 01/22/23 08:16 Dose: 125 mg Vancomycin HCl (Vancomycin Hcl 125 Mg Capsule) 125 mg PO TID [facility] Stop: 02/03/23 15:01 Last Admin: 01/18/23 20:32 Dose: 125 mg Vancomycin HCl (Vancomycin Hcl 125 Mg Capsule) 125 mg PO BID [facility] Stop: 02/10/23 09:01 Vancomycin HCl (Vancomycin Hcl 125 Mg Capsule) 125 mg PO DAILY [facility] Allergies Allergies Allergy/AdvReac Type Severity Reaction Status Date / Time Unable to Assess Allergy Verified 12/28/22 18:48 Assessment & Plan Assessment & Plan (1) MDD (major depressive disorder), recurrent episode, moderate: Status: Acute Code(s): F33.1 - Major depressive disorder, recurrent, moderate Plan Pt is a 72-year-old female with a PMH significant for?GERD and thymoma who is admitted to [facility] for increasing depression and passive wishes. Patient was originally admitted on 12/02/2022 to [facility] after being found lying on the side of the road and reported to the police that she was [place] [address] Patient was altered at the time and could provide no reason for why she was walking to the highway. Patient was initially admitted to the medical service for treatment of AMS, hypocalcemia, hypokalemia. Medical consult for admission H&P. Mood disorder Plan 1. Continue with antidepressants as prescribed. 2. Continue with antibiotics for Clostridium difficile infection. 3. Consult to hospitalist since she had been on antibiotics for 1 week and still with diarrhea. Infectious Disease is involved now and yesterday, January 17 we are changing antibiotics and she will be discharged with vancomycin p.o.. 4. Continue contact isolation as per protocol. 5. Discharge for early next week. 01/22: Continue current regimen and plans Reason for continued inpatient stay Substantial Risk for: med/psych decompensation Time Spent With Patient Time: Total time managing care of this patient today ____ minutes.
[2023-01-22 18:00] VITALS: BP 134/71; PULSE 77; RESP 18; TEMP 36.7; O2SAT 95
[2023-01-22] MEDS: Mirtazapine 7.5 MG TABLET PO (20:07)
[2023-01-22] MEDS: traZODone HCL 50 MG TABLET PO (20:07)
[2023-01-22] MEDS: OLANZapine 5 MG TABLET PO (20:07)
[2023-01-23] MEDS: Omeprazole 20 MG CAPSULE.DR PO (05:52)
--- NOTE | 2023-01-23 06:23 | PC.NURSE ---
Assumed care 19:00 (01/22). VSS. No acute complaints offered by pt. No distress or acute issues noted overnight. Pt slept eight hours with even and unlabored breathing observed on frequent purposeful rounding. See shift assessment for full details.
[2023-01-23 07:55] VITALS: BP 141/73; PULSE 61; RESP 18; TEMP 36.4; O2SAT 95
[2023-01-23] MEDS: Escitalopram Oxalate 10 MG TABLET PO (08:05)
[2023-01-23] MEDS: Famotidine 20 MG TABLET PO ×2 (08:06→20:29)
[2023-01-23] MEDS: vancomycin HCL 125 MG CAPSULE PO ×4 (08:06→20:29)
--- NOTE | 2023-01-23 09:48 | P.PNPSI_ITS ---
Subjective Subjective Date of Service: 01/23/23 Reason For Visit: Major Depressive D/O Recurrent Severe W/O Psyh Subjective Notes: Conditional Voluntary Interim History: Patient was seen and discussed in rounds today. Records and plans were reviewed. She is very anxious about her discharge tomorrow specially with the C diff. Nurses have been talking to her about precautions she needs to take but that probably needs to be carefully reviewed again tomorrow prior to her discharge. No other complaints. Eating and sleeping adequately. No side effects reported. Medication Compliance: Yes Side effects from medications: No Review of Systems Review of Systems Loose stool Yes all other systems are reviewed and are negative Mental Status Exam Mental Status Exam Narrative: In today's visit she is alert, pleasant and interactive. Normal speech. Moderate eye contact. Affect is appropriate and contained. Thought processes are coherent and linear. No dangerous behaviors. No SI. Judgment is fair. Diagnostics Vital Signs (24Hr): Vital Signs - 24 hr 01/22/23 18:00 01/23/23 07:55 Temperature 98.1 F 97.5 F Pulse Rate 77 61 Respiratory Rate 18 18 Blood Pressure 134/71 141/73 H Pulse Oximetry 95 95 Oxygen Delivery Method Room Air Room Air BMI result Body Mass Index 30.4 Labs 01/17/23 14:08 01/17/23 14:08 Imaging Radiology Impressions: ITS Impressions Abdomen Ultrasound 01/07/23 08:45 IMPRESSION: Mild bilateral hydronephrosis. Left kidney not well visualized. Medications Medications Current Medications Acetaminophen (Acetaminophen 325 Mg Tablet) 650 mg PO Q6H PRN PRN Reason: Headache/Pain Mild Scale (1-3) Last Admin: 01/09/23 21:30 Dose: 650 mg Al Hydroxide/Mg Hydroxide (Magnesium Hydrox/Alum Hydrox 30 Ml Oral.Susp) 30 ml PO Q6H PRN PRN Reason: Heartburn/Nausea Last Admin: 01/05/23 19:58 Dose: 30 ml Escitalopram Oxalate (Escitalopram Oxalate 10 Mg Tablet) 10 mg PO DAILY [facility] Last Admin: 01/23/23 08:05 Dose: 10 mg Famotidine (Famotidine 20 Mg Tablet) 20 mg PO BID [facility] Last Admin: 01/23/23 08:06 Dose: 20 mg Hydroxyzine HCl (Hydroxyzine Hcl 25 Mg Tablet) 25 mg PO Q6H PRN PRN Reason: Anxiety Loperamide HCl (Loperamide Hcl 2 Mg Capsule) 4 mg PO Q6H PRN PRN Reason: Diarrhea Last Admin: 01/06/23 18:03 Dose: 4 mg Magnesium Hydroxide (Milk Of Magnesia 30 Ml Oral.Susp) 30 ml PO DAILY PRN PRN Reason: Constipation Mirtazapine (Mirtazapine 7.5 Mg Tablet) 7.5 mg PO BEDTIME [facility] Last Admin: 01/22/23 20:07 Dose: 7.5 mg Olanzapine (Olanzapine 5 Mg Tablet) 5 mg PO BEDTIME [facility] Last Admin: 01/22/23 20:07 Dose: 5 mg Omeprazole (Omeprazole 20 Mg Capsule.Dr) 20 mg PO DAILY@0630 [facility] Last Admin: 01/23/23 05:52 Dose: 20 mg Ondansetron HCl (Ondansetron Odt 4 Mg Tab.Rapdis) 4 mg TRANSLINGU Q8H PRN PRN Reason: Nausea Simethicone (Simethicone 80 Mg Tab.Chew) 80 mg PO QIDWMHS PRN PRN Reason: epigastric discomfort/bloating Last Admin: 01/01/23 08:01 Dose: 80 mg Trazodone HCl (Trazodone Hcl 50 Mg Tablet) 50 mg PO BEDTIME MRX1 PRN PRN Reason: Insomnia Last Admin: 01/22/23 20:07 Dose: 50 mg Vancomycin HCl (Vancomycin Hcl 125 Mg Capsule) 125 mg PO QID [facility] Stop: 01/27/23 13:01 Last Admin: 01/23/23 08:06 Dose: 125 mg Vancomycin HCl (Vancomycin Hcl 125 Mg Capsule) 125 mg PO TID [facility] Stop: 02/03/23 15:01 Last Admin: 01/18/23 20:32 Dose: 125 mg Vancomycin HCl (Vancomycin Hcl 125 Mg Capsule) 125 mg PO BID [facility] Stop: 02/10/23 09:01 Vancomycin HCl (Vancomycin Hcl 125 Mg Capsule) 125 mg PO DAILY [facility] Allergies Allergies Allergy/AdvReac Type Severity Reaction Status Date / Time Unable to Assess Allergy Verified 12/28/22 18:48 Assessment & Plan Assessment & Plan (1) MDD (major depressive disorder), recurrent episode, moderate: Status: Acute Code(s): F33.1 - Major depressive disorder, recurrent, moderate Plan Pt is a 72-year-old female with a PMH significant for?GERD and thymoma who is admitted to [facility] for increasing depression and passive wishes. Patient was originally admitted on 12/02/2022 to [facility] after being found lying on the side of the road and reported to the police that she was [place] [address] Patient was altered at the time and could provide no reason for why she was walking to the highway. Patient was initially admitted to the medical service for treatment of AMS, hypocalcemia, hypokalemia. Medical consult for admission H&P. Mood disorder Plan 1. Continue with antidepressants as prescribed. 2. Continue with antibiotics for Clostridium difficile infection. 3. Consult to hospitalist since she had been on antibiotics for 1 week and still with diarrhea. Infectious Disease is involved now and yesterday, January 17 we are changing antibiotics and she will be discharged with vancomycin p.o.. 4. Continue contact isolation as per protocol. 5. Discharge for early next week. 01/22: Continue current regimen and plans 01/23: Continue current plans and regimen. Probable discharge tomorrow. Reason for continued inpatient stay Substantial Risk for: med/psych decompensation Time Spent With Patient Time: Total time managing care of this patient today ____ minutes.
[2023-01-23 18:00] VITALS: BP 168/72; PULSE 79; RESP 20; TEMP 36.7; O2SAT 95
[2023-01-23] MEDS: Mirtazapine 7.5 MG TABLET PO (20:29)
[2023-01-23] MEDS: OLANZapine 5 MG TABLET PO (20:29)
[2023-01-23] MEDS: traZODone HCL 50 MG TABLET PO (20:31)
[2023-01-24 06:00] VITALS: BP 170/84; PULSE 84; RESP 18; TEMP 37; O2SAT 94
[2023-01-24] MEDS: Famotidine 20 MG TABLET PO (08:48)
[2023-01-24] MEDS: vancomycin HCL 125 MG CAPSULE PO ×2 (08:48→12:19)
[2023-01-24] MEDS: Escitalopram Oxalate 10 MG TABLET PO (08:48)
--- NOTE | 2023-01-24 09:11 | PM.PSYDC ---
DS: Providers Provider Date of Service: 01/24/23 Date of admission: 12/28/22 18:37 Date of discharge: 01/24/23 Primary care physician: Unknown Physician Consults: 12/28/22 10:58 Consult to Hospitalist Routine Comment: Consulting Provider: Hospitalist Reason For Exam: DIRECT ADMISSION 12/31/22 13:53 Consult to Hospitalist Routine Comment: Consulting Provider: Hospitalist Reason For Exam: worsening loose stools, abdominal pain, poor po 01/06/23 09:33 Consult to Gastroenterology Routine Consulting Provider: Maycol Patton Reason for consultation: GERD? hx of diverticulosis Has provider been notified: Yes 01/08/23 16:19 Consult to Infectious Diseases [place] [facility] [place] Reason for consultation: recurrent c-diff 01/17/23 13:37 Consult to Infectious Diseases Routine Consulting [place] [facility] [place] Reason for consultation: recurrent cdiff 01/10, still with diarrhea Attending physician on discharge: Nick Ramires DS: Diagnosis Discharge Diagnosis (1) MDD (major depressive disorder), recurrent episode, moderate: Status: Acute DS: Medications Discharge Medications Home Medications: Home Medications Medication Instructions Recorded Confirmed lorazepam 0.5 mg tablet 0.5 mg PO TID PRN Anxiety 12/28/22 12/28/22 mirtazapine 7.5 mg tablet 7.5 mg PO BEDTIME 12/28/22 12/28/22 olanzapine 5 mg disintegrating 5 mg PO BEDTIME 12/28/22 12/28/22 tablet Mental Status Exam Mental Status Exam Patient Appearance: Well Grooomed and Appropriate Patient Orientation: Person and Situation Level of Consciousness: Awake and Appropriate Patient Behavior: Appropriate and Cooperative Mood Description: Withdrawn Affect Description: Constricted Patient Cognition Impaired: Yes Ability to Follow Directions: Good Speech Pattern: Clear Hallucinations: None Delusions: Not Present Thought Process: Linear Thought Content: positive for Circumstantial Judgement: Fair Data Data Completed and Pending Completed studies during hospitalization [Text1]: 01/17/23 14:08 WBC 7.6 RBC 4.41 Hgb 13.3 Hct 41.1 MCV 93.2 MCH 30.2 MCHC 32.4 RDW 16.2 H Plt Count 258 MPV 11.3 Immature Gran % (Auto) 1.0 H Neut % (Auto) 65.6 Lymph % (Auto) 23.1 Wheeler % (Auto) 6.4 Eos % (Auto) 3.4 Baso % (Auto) 0.5 Lymph # (Auto) 1.8 Wheeler # (Auto) 0.5 Eos # (Auto) 0.3 Baso # (Auto) 0.0 Abs Immat Gran (auto) 0.08 H Absolute Neuts (auto) 5.0 Absolute Nucleated RBC 0.000 Nucleated RBC % (auto) 0.0 Sodium 142 Potassium 3.2 L Chloride 114 H Carbon Dioxide 21 L Anion Gap 10 L BUN 13 Creatinine 0.75 Estim Creat Clear Calc 55.4 Estimated GFR > 60 Random Glucose 119 H Calcium 8.2 L D Imaging Diagnostic Imaging Impressions Abdomen Ultrasound 01/07/23 08:45 IMPRESSION: Mild bilateral hydronephrosis. Left kidney not well visualized. DS: Summary Hospital Course Hospital Course: The patient is a 72-year-old female, with a past history of major depressive disorder who was found by the police in the road very confused and delusional with visual and auditory hallucinations. She was rushed to the emergency room of [facility], diagnosed with a UTI and treated with antibiotics. Since the patient improved but still she was confused with passive suicidal ideation she was transferring to this facility for continuation of care. Please see the HPI of the admission note for further details. On admission, the patient was very tired, slightly confused reported that she was feeling depressed and withdrawn. We discussed risks, benefits, side-effects and alternatives and she agreed to continue Zyprexa to target her psychosis. Later on, the patient reported that she was feeling very bad and she started having loose stools. She was diagnosed with Clostridium diff , put on contact isolation and treated with antibiotic as per Infectious Disease and hospitalist. The patient's medical condition improved slowly, she needed to have vancomycin and her loose stools improved after 1 week of treatment. We started slow titration of Lexapro to 30 mg p.o. q.h.s. and kept her Zyprexa and Remeron as prescribed. The patient's mood improved, she was future oriented and there were no evidence of delirium. Since there were no safety concerns discharge planning was discussed. Time spent discussing smoking cessation with patient: 3 to 10 minutes Status at Discharge Functional status at discharge: independent ambulation Overall status at discharge: patient is back to baseline Time Spent with Patient Time attestation: Total time managing care of this patient today ___30_ minutes. Time spent: Less than 30 minutes Discharge Plan Discharge Anticipated Discharge Date/Time: 01/24/23 13:00 Patient Disposition: Home, Self-Care Discharge Diagnosis: Major depressive disorder recurrent episode severe. Delirium resolved Clostridium difficile infection on treatment. Referrals: Dr. Rani Connelly - Psych Prescriber [Other] - 01/25/23 10:00 am (Appointment: 01/25/2023 @ 10am ) Dr. Anna Landeros - PCP [Other] - 02/04/23 9:00 am (Appointment - is in-person at doctor's office. 02/04/2023 @ 9 am ) Jannet Franco MD [Physician] - 1 Week (recurrent cdiff) Discharge Medications: New vancomycin 125 mg Capsule 125 mg PO QID 14 Days Qty: 56 0RF trazodone 50 mg Tablet 50 mg PO BEDTIME MRX1 PRN (Reason: Insomnia) 30 Days Qty: 30 0RF famotidine 20 mg Tablet 20 mg PO BID 30 Days Qty: 60 0RF omeprazole 20 mg Capsule,Delayed Release(Dr/Ec) 20 mg PO DAILY@0630 30 Days Qty: 30 0RF simethicone [Gas Relief (simethicone)] 80 mg Tablet,Chewable 80 mg PO QIDWMHS PRN (Reason: epigastric discomfort/bloating) 30 Days Qty: 90 0RF escitalopram oxalate 10 mg Tablet 30 mg PO DAILY 30 Days Qty: 90 0RF Continued olanzapine 5 mg tablet,disintegrating 5 mg PO BEDTIME 30 Days Qty: 30 0RF mirtazapine 7.5 mg tablet 7.5 mg PO BEDTIME 30 Days Qty: 30 0RF Discontinued lorazepam 0.5 mg tablet 0.5 mg PO TID PRN (Reason: Anxiety) Rx Instructions: PRN reason anxiety/sleep Discharge Orders: Discharge Order (Routine); Ordered 01/24/23 Ordered By: Nick Ramires Diet: Advance to usual diet Activity on Discharge: As tolerated Stand Alone Forms: Patient Portal Discharge page Care Plan Goals: Care plan goals achieved in this admission Health Concerns: Continue treatment with primary care physician, the taper of vancomycin will be done as an outpatient Plan of Treatment: Continue treatment by outpatient providers Assessment: Elderly female admitted for exacerbation of depression with suicidal ideation in the context of a UTI, Clostridium difficile infection and other medical comorbidities that worsened at her mental status. The patient was treated medically and Lexapro was increased up to 30 mg with for improvement of her symptoms, no safety concerns ready for discharge in the community.
--- NOTE | 2023-01-24 16:23 | PC.NURSE ---
Pt. alert and oriented X 4. Denies anxiety/SI/HI/AVH. Does endorse depression5/10, which is her self reported baseline. Reports readiness for discharge, I can't wait to see my grandchildren, but does have some worries about caring for herself and plans to set up services. Discharge meds and instructions reviewed with pt., who verbalized understanding. Left unit at 15:55 via WC and was accompanied by this RN and son to waiting car.
== END 2023-01-24 15:55 | disposition home or self-care (01) | DRG 885 ==
PROVIDERS: Clinical Nurse Specialist Psychiatric/Mental Health; Internal Medicine Gastroenterology; Physician Assistant; Social Worker; Admitting Provider Psychiatry & Neurology Psychiatry; Visit Provider Psychiatry & Neurology Psychiatry
DX: F33.1 Major depressive disorder, recurrent, moderate (principal); R45.851 Suicidal ideations; F05 Delirium due to known physiological condition; A04.71 Enterocolitis due to Clostridium difficile, recurrent; K21.9 Gastro-esophageal reflux disease without esophagitis; Z79.899 Other long term (current) drug therapy
CPT/HCPCS: 36415; 76700; 80048; 80051; 80053; 80061; 83690; 84520; 85025; 87324; 87493

== ENCOUNTER → 2022-12-28 18:37 | Outpatient (BNV) | payer MEDICARE, SELFPAY | PROVIDERS: Admitting Provider Psychiatry & Neurology Psychiatry; Visit Provider Psychiatry & Neurology Psychiatry | DX: F33.1 Major depressive disorder, recurrent, moderate (principal) | CPT/HCPCS: 90792; 99231; 99232; 99238 ==

== ENCOUNTER → 2022-12-28 18:37 | Outpatient (BNV) | payer MEDICARE, SELFPAY | PROVIDERS: Admitting Provider Psychiatry & Neurology Psychiatry; Visit Provider Student in an Organized Health Care Education/Training Program | DX: K21.9 Gastro-esophageal reflux disease without esophagitis (principal) | CPT/HCPCS: 99221; 99499 ==

== ENCOUNTER → 2022-12-28 18:37 | Outpatient (BNV) | payer MEDICARE, SELFPAY | PROVIDERS: Admitting Provider Psychiatry & Neurology Psychiatry; Visit Provider Internal Medicine Gastroenterology | DX: R10.10 Upper abdominal pain, unspecified (principal) | CPT/HCPCS: 99222 ==